=== PATIENT | male | born 1950 ===

== ENCOUNTER 2017-03-07 18:34 | Inpatient (IN) | payer MEDICAID ==
[~2017-03-07] VITALS: Ht 182.8 cm; Wt 71.7 kg
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
--- NOTE | ~2017-03-07 | PR ---
[place], [place] PROGRESS NOTE NAME: ABIEL CHIRINOS UNIT #: [id number] ROOM: 311 DOCTOR: Rico BURT,RENÉE BIRTHDATE: [birth year] DOS: 03/14/2017 PSYCHIATRIC PROGRESS NOTE SUBJECTIVE: The patient seen and spoke with the staff. Per staff, the patient is doing well. No visual problems or issues. Pleasantly confused and demented, easily redirectable. The patient was pleasant and cooperative. He was sitting in the day area. He reported doing well, did not express any problems or concerns. He reported good sleep and appetite. He was trying to confabulate with interview during the conversation and no other issues. MENTAL STATUS EXAMINATION: The patient was pleasant, cooperative, described his mood as "okay." Affect, mood congruent. Thought processes with confabulation. Denied auditory or visual hallucination. No delusion or paranoia. Denied suicidal ideation, intent or plan. He also denied any homicidal ideation, intent or plan. Insight and judgment impaired. ASSESSMENT: 1. Alzheimer's dementia with behavioral disturbances. 2. 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 PLAN: 1. Continue current medication and care. 2. Continue redirection. 3. Holm milieu. RENÉE BURT MD CM:TONI [id number] Rico BURT 03/14/17 1528 interface
--- NOTE | ~2017-03-07 | DS ---
[place], [place] DISCHARGE SUMMARY NAME: ABIEL CHIRINOS UNIT #: [id number] ROOM: 311 DOCTOR: Rico BURT,RENÉE BIRTHDATE: [birth year] DOS: 03/18/2017 ADDENDUM Please refer to the history of present illness, past psychiatric history, past medical history, social history, substance abuse history, admission mental status examination, admission diagnosis from the psychiatric H and P. HOSPITAL COURSE: The patient got admitted for stabilization. We started him on Depakote, which he tolerated well with significant improvement of his mood and symptoms. The treatment team felt that the patient got maximum benefit of this acute hospitalization and can be [facility] to the [facility] on [facility]18[facility]2017. MENTAL STATUS EXAM AT DISCHARGE: The patient was pleasant, cooperative. He was alert, but not oriented to date, month and year. Speech low toned. Described his mood as "okay." Affect, mood congruent. Thought processes with confabulation. He denied auditory or visual hallucination. No delusion or paranoia noted. Denied suicidal ideation, intent or plan. He also denied homicidal ideation, intent or plan. ASSESSMENT: Dementia with behavioral disturbances. PLAN: 1. Continue current medication. 2. Needs psychiatric followup appointment at the facility. RENÉE BURT MD CM:MANN [phone] Rico BURT 03/20/17 0611 interface
--- NOTE | ~2017-03-07 | PR ---
[place], [place] PROGRESS NOTE NAME: ABIEL CHIRINOS UNIT #: [id number] ROOM: 311 DOCTOR: Rico BURT,RENÉE BIRTHDATE: [birth year] DOS: 03/15/2017 SUBJECTIVE: The patient seen and spoke with the staff. Per staff, the patient is doing well. No behavioral problems or issues. He walks in the hallway every day. Easily redirectable. Slept well. Medication compliant. The patient was in the day area. He reports doing well. Denied being depressed or sad. He had difficulty finding words at times also. He was definitely confabulating, not in any acute distress. MENTAL STATUS EXAMINATION: The patient was pleasant and cooperative, described his mood as "okay." Affect, mood congruent. Denied auditory or visual hallucination. No delusion or paranoia noted. He denied any suicidal ideation, intent or plan. He also denied any homicidal ideation, intent or plan. ASSESSMENT: 1. Alzheimer dementia with behavioral disturbances. 2. 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 PLAN: 1. Continue current medication and care. 2. Continue redirection. 3. Holm milieu. RENÉE BURT MD CM:TONI 47 [phone] Rico BURT 03/15/171931 interface
--- NOTE | ~2017-03-07 | PR ---
[place], [place] PROGRESS NOTE NAME: ABIEL CHIRINOS UNIT #: [id number] ROOM: 311 DOCTOR: Rico BURT,RENÉE BIRTHDATE: [birth year] DOS: 03/17/2017 PSYCHIATRIC PROGRESS NOTE SUBJECTIVE: The patient seen and spoke with the staff. Per staff, the patient is doing well. No behavioral problems or issues. Medication compliant. He is pleasantly confused. The patient was pleasant, cooperative. He was in the day area. He said that he is doing pretty good. He did not express any problems or concern. He reports good sleep and appetite. MENTAL STATUS EXAMINATION: The patient was pleasant and cooperative, described his mood as "pretty good." Affect, mood congruent. Thought processes with confabulation. He denied auditory or visual hallucination. No delusions or paranoia noted. He denies suicidal ideation, intent or plan. He also denied homicidal ideation, intent or plan. ASSESSMENT: 1. 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 2. Alzheimer's dementia with behavioral disturbances. PLAN: 1. Continue current medication. 2. Continue redirection. 3. Holm milieu. RENÉE BURT MD CM:TONI [phone] Rico BURT 03/17/17 1029 interface
--- NOTE | ~2017-03-07 | PR ---
[place], [place] PROGRESS NOTE NAME: ABIEL CHIRINOS UNIT #: [id number] ROOM: 311 DOCTOR: LAQUITA BATES MD BIRTHDATE: [birth year] DOS: 03/09/2017 CHIEF COMPLAINT: "Morning, I don't know what I am doing here." SUMMARY OF THE VISIT: The patient was interviewed in the hallway and then later, walked into the dining area. He was very vague in his responses. He denied any issues, but could not give me much details as far as how long he has been here and why he was here. He minimized any issues and stated that he is sleeping well and eating well. MENTAL STATUS: He is alert and oriented to self only. Mood does seem to be fairly euthymic this morning, although he is very vague and his responses are short and simple at times totally inappropriate. He has a great deal of processing difficulty and short term memory is very poor. PLAN: I will try to simplify his drug regimen. I do not see necessarily depression, so I will discontinue Remeron. I will get rid of p.r.n. Haldol and Benadryl in lieu of Ativan and Geodon. I will discontinue Aricept in lieu of Exelon patch 4.6 mg a day. Given his history of mood lability, I will start Depakote 500 mg t.i.d. and monitor accordingly. We will engage in individual and fuller milieu activity with the plan to return back to [facility] or the least restrictive environment when psychiatrically stable. LAQUITA BATES MD CM:PNTRANS [id number] LAQUITA BATES MD 03/09/17 1118 interface
--- NOTE | ~2017-03-07 | PR ---
[place], [place] PROGRESS NOTE NAME: ABIEL CHIRINOS UNIT #: [id number] ROOM: 311 DOCTOR: LAQUITA BATES MD BIRTHDATE: [birth year] DOS: 03/12/2017 CHIEF COMPLAINT: "I have been here as long as I needed to be here." SUMMARY OF THE VISIT: The patient was interviewed as he sat engaging in group therapy. He did stop and engage in conversation with me. He remains pleasantly confused. His responses are very disorganized and he makes little sense and does not necessarily answer the questions asked of him. He was pleasant, however. MENTAL STATUS: He is alert and oriented to person. It is unclear if he realizes where he is at and he certainly has no orientation to time. His responses are short and simple, more often than not inappropriate to the question asked of him. He is very perplexed and bewildered. He is tolerating the current medication regimen well and I see no sedation, somnolence or other side effects. PLAN: I will check a valproic acid level in the morning to ensure that it is therapeutic, maintain Depakote 500 t.i.d., maintain Exelon patch and Namenda, engage in individual and fuller milieu activity with the plan to return to [facility] when stable. LAQUITA BATES MD CM:PNTRANS [phone] LAQUITA BATES MD 03/12/172121 interface
--- NOTE | ~2017-03-07 | PR ---
[place], [place] PROGRESS NOTE NAME: ABIEL CHIRINOS UNIT #: [id number] ROOM: 311 DOCTOR: Rico BURT,RENÉE BIRTHDATE: [birth year] DOS: 03/16/2017 SUBJECTIVE: The patient seen and spoke with the staff. Per staff, the patient is doing well. No behavioral problems or issues. Pleasantly confused, easily redirectable. The patient was pleasant, cooperative. He was watching TV. He was in the day area. He reports doing well. Denied any problems or concerns. MENTAL STATUS EXAMINATION: Pleasant, cooperative. Described her mood as "okay." Affect, mood congruent. Thought processes with confabulation. He denied auditory or visual hallucination. No delusion or paranoia noted. Denied suicidal ideation, intent or plan. He also denied homicidal ideation, intent or plan. ASSESSMENT: 1. Major depressive disorder with psychotic features. 2. Dementia with behavioral disturbances. PLAN: 1. Continue current medication and care. 2. Continue redirection. 3. Holm milieu. RENÉE BURT MD CM:TONI 56 Rico BURT 03/17/1735 interface
--- NOTE | ~2017-03-07 | DS ---
[place], [place] DISCHARGE SUMMARY NAME: ABIEL CHIRINOS UNIT #: [id number] ROOM: 311 DOCTOR: Rico BURT MAHBOOB BIRTHDATE: [birth year] DOS: 03/18/2017 ADDENDUM Please copy the history of present illness, past psychiatric history, past medical history, social history, admission mental status examination, admission diagnoses from the psychiatric admission H and P. HOSPITAL COURSE: The patient was admitted for stabilization. He was started on medication, which he tolerated well with significant improvement of his mood and symptoms. During the course of his hospitalization, the patient has never been a threat to himself or anyone else. He was pleasant, cooperative and engaging. He took his medication regularly and did not have any side effect. He was easily redirectable. The treatment team felt that the patient got maximum benefit out of the acute hospitalization and can be discharged back to the correction on 03/18/2017. MENTAL STATUS EXAMINATION: The patient was pleasant, cooperative, described his mood as "okay." Affect, mood congruent. Thought process is with confabulation. Denied auditory or visual hallucination. No delusions or paranoia noted. Denied suicidal ideation, intent or plan. He also denies homicidal ideation, intent or plan. Insight and judgment impaired. ASSESSMENT: 1. Major depressive disorder without psychotic feature. 2. Dementia with behavioral disturbances. PLAN: 1. Continue current medication. 2. The patient needs to be seen by the psychiatrist at the nursing facility. 3. If there is any crisis or concern, please call 911 or send the patient to the ER. [place], [place] DISCHARGE SUMMARY NAME: ABIEL CHIRINOS UNIT #: [id number] ROOM: 311 DOCTOR: Rico BURT MAHBOOB BIRTHDATE: [birth year] RENÉE BURT MD CM:MANN [phone] Rico BURT 03/19/17 0904 interface
--- NOTE | ~2017-03-07 | PR ---
[place], [place] PROGRESS NOTE NAME: ABIEL CHIRINOS UNIT #: [id number] ROOM: 311 DOCTOR: Rico BURT,RENÉE BIRTHDATE: [birth year] DOS: 03/13/2017 PSYCHIATRIC PROGRESS NOTE SUBJECTIVE: The patient seen and spoke with the staff. Per staff, patient is doing well. No behavioral problems or issues. Med compliant. The patient was pleasant, cooperative. He was in the day area. He is totally not aware of the day, date, month, or year. He even does not know his name. He said that he is doing well. He was not in any distress. Did not express any problems or concerns. MENTAL STATUS EXAMINATION: The patient was pleasant, cooperative. He was alert, but not oriented to day, date, month and year. Speech, normal volume and tone. Described his mood as "fine." Affect was mood congruent. Thought process with confabulation. Denied auditory or visual hallucination. No delusion or paranoia noted. Denied suicidal ideation, intent or plan. He also denied homicidal ideation, intent or plan. Insight and judgment impaired. ASSESSMENT: 1. Alzheimer dementia with behavioral disturbances. 2. Major depressive disorder, recurrent with psychotic feature. PLAN: 1. Continue current medication and care. 2. Continue redirection. 3. . RENÉE BURT MD CM:TONI 2 Rico BURT 03/14/17222 interface
--- NOTE | 2017-03-07 20:00 | NUR ---
ABIEL CHIRINOS a 66 year old M admitted via stretcher from the ADMITTING as a voluntary admission. Arrived on unit at 1999. ALLERGIES: NKA. Vital signs are: 98.2-86-16 108/81. Verbal consent received from the POA for the following forms with stated understanding: Authorization For The Release of Medical Information, Clothing List, Consent to Voluntary Admission and Hospitalization, Consent and Release Forms/Receipt of Rights, Acknowledgement of Advance Directive Information, Behavioral Health Consent Form, and Informed Consent of Medications. Admitted under the services of Dr. CARMEL M.D.,[facility]. A search was conducted and hazardous articles were removed. Client was oriented to the unit. SUSAN ZEPEDA
[2017-03-07] MEDS ORDERED: ARICEPT10 M1 PO (20:03)
[2017-03-07] MEDS ORDERED: COLACE100 MG PO (20:04)
[2017-03-07] MEDS ORDERED: KLOR-CON 1010 ME1 PO (20:05)
[2017-03-07] MEDS ORDERED: LASIX20 MG PO ×2 (20:05→20:21)
[2017-03-07] MEDS ORDERED: REMERON15 M2 PO (20:24)
[2017-03-07] MEDS ORDERED: VITAMIN D350000 UNIT PO (20:25)
[2017-03-07] MEDS ORDERED: NAMENDA10 MG PO (20:26)
[2017-03-07] MEDS ORDERED: TRAMADOL HCL50 MG PO (20:27)
[2017-03-07 20:29] VITALS: BP 108/81
--- NOTE | 2017-03-07 20:45 | NUR ---
PT CALM AND COOPERATIVE DURING THE ADMISSION ASSESSMENT. ANSWERED SOME QUESTIONS APPROPRIATELY WITH YES OR NO ANSWERS HOWEVER UNABLE TO STATE NAME, WHERE HE WAS AT, OR THE YEAR. WHEN PT WAS ASKED TO SIGN HIS NAME TO THE CRISIS PREVENTION PLAN PT WAS UNABLE TO REMEMBER HIS NAME. WHEN PT WAS SHOWED HIS HOSPITAL ID [facility] HE WAS STILL UNABLE TO INITIAL HIS NAME. NO ADVERSE MOODS OR BEHAVIORS NOTED FROM PT. PT INTRODUCED TO UNIT AND MADE AWARE OF WHERE HIS ROOM IS. PT PROVIDED SNACK THIS PM.
[2017-03-07 21:45] VITALS: BP 108/81
--- NOTE | 2017-03-07 21:45 | NUR ---
CALL OUT TO FACILITY TO SEE IF PT RECEIVED HIS FLU VACCINATION. FACILITY STTED THEY HAVENT GIVEN ANY OUT YET, CALL TO POA TO SEE IF POA WANTS PT TO GET FLU VACCINATION HERE OR AT THE FACILITY. POA STATED TO GIVE THE PT HIS FLU VACCINATION WHILEHE IS HERE.
--- NOTE | 2017-03-07 22:09 | NUR ---
CALL PLACED TO REGARDING NEW ADMISSION MEDICAL MANAGEMENT CONSULT. VERBAL ORDERS RECEIVED TO CONTINUE MEDICAL HOME MEDICATIONS. CONSULT IS PLACED UNDER .
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
--- NOTE | 2017-03-08 04:44 | NUR ---
24 HR chart check completed.
--- NOTE | 2017-03-08 06:12 | NUR ---
PT SLEPT GREATER THAN 6 HOURS THIS SHIFT. NO S/S OF DISTRESS NOTED. NO C/O PAIN.
[2017-03-08 07:10] LABS: BASO # 0.1 10*3/uL (0.0-0.1); BASO % 1.1 % (0.0-1.0); EOS # 0.2 10*3/uL (0.0-0.4); HEMATOCRIT 43.5 % (42.0-52.0); HEMOGLOBIN 14.4 g/dl (14.0-18.0); LYMPH # 2.1 10*3/uL (1.3-4.4); LYMPH % 32.3 % (27.0-41.0); MEAN CELL VOLUME 95.4 fl (80.0-94.0); MEAN CORPUSCULAR HGB 31.6 pg (27.0-31.0); MEAN CORPUSCULAR HGB CONC 33.1 g/dl (33.0-37.0); MEAN PLATELET VOLUME 11.2 fl (9.6-12.3); MONO # 0.6 10*3/uL (0.1-1.0); MONO % 8.7 % (3.0-9.0); NEUT # 3.5 10*3/uL (2.3-7.9); NEUT % 54.6 % (47.0-73.0); PLATELET COUNT AUTOMATED 153 10*3/uL (130-400); RED BLOOD COUNT 4.56 10*6/uL (4.50-5.90); WHITE BLOOD COUNT 6.4 10*3/uL (4.8-10.8)
[2017-03-08 07:40] LABS: ALBUMIN 3.4 gm/dl (3.1-4.5); ALKALINE PHOSPHATASE 94 U/L (45-117); BUN 13 mg/dl (7-24); CHLORIDE 107 mmol/L (98-107); CHOLESTEROL 163 mg/dL (<200); CREATININE 1.15 mg/dL (0.70-1.30); HDL CHOLESTEROL 52 mg/dl (40-60); LDL CHOLESTEROL 74 mg/dL (9-159); POTASSIUM 3.6 mmol/L (3.5-5.1); SGOT/AST 22 IU/L (3-35); SGPT/ALT 15 U/L (12-78); SODIUM 144 mmol/L (136-145); TOTAL PROTEIN 6.4 gm/dL (6.4-8.2); TRIGLYCERIDES 186 mg/dl (<150); VLDL CHOLESTEROL 37 mg/dL (6-40)
[2017-03-08 07:53] VITALS: BP 143/78
[2017-03-08 09:01] LABS: VITAMIN D, 25-HYDROXY 49.8 ng/mL (30-100)
--- NOTE | 2017-03-08 09:07 | NUR ---
DR. BURT HERE TO SEE PT AT THIS TIME.
--- NOTE | 2017-03-08 09:21 | NUR ---
RECIEVED CALL FROM PT'S SENIA MAYER, UPDATE GIVEN. DORI PROVIDED HER CELL PHONE NUMBER, , CELL PHONE NUMBER ADDED TO CHART.
--- NOTE | 2017-03-08 10:53 | NUR ---
DR. CHILDS ON UNIT TO SEE PT AT THIS TIME.
--- NOTE | 2017-03-08 11:20 | NUR ---
FLU VACCINE GIVEN THIS DATE TO PT'S RIGHT DELTOID, AFEBRILE, PT TOLERATED WELL. SEE EMAR FOR FURTHER DOCUMENTATION.
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
--- NOTE | 2017-03-08 14:35 | NUR ---
RECIEVED CALL FROM DR. BENSON REQUESTING MORE INFORMATION ON PT'S PAST MEDICAL HISTORY, CALL PLACED TO [facility], REQUESTED HISTORY AND PHYSICAL, NURSE CARLOS STATES SHE WILL FAX IT OVER. FAX NUMBER PROVIDED.
--- NOTE | 2017-03-08 15:03 | NUR ---
H&P RECIEVED FROM [facility], NO NEW INFORMATION DISCOVERED FROM WHAT WAS IN THE CHART, CALL PLACED TO SENIA TO INQUIRE ABOUT SURGICAL AND FAMILY HISTORY, NO ANSWER, MESSAGE LEFT. CALL PLACED TO DR. BENSON TO MAKE AWARE.
--- NOTE | 2017-03-08 17:20 | NUR ---
SHIFT CHART CHECK COMPLETED.
[2017-03-08 20:11] VITALS: BP 110/74
--- NOTE | 2017-03-08 22:06 | NUR ---
PATIENT AMBULATING IN HALLWAY. ABLE TO REDIRECT PATIENT OUT OF OTHER PATIENT'S ROOM. MEDICATION COMPLAINT. VOICES NO COMPLAINTS OF PAIN OR DISCOMFORT AT THIS TIME
--- NOTE | 2017-03-08 22:15 | NUR ---
PATIENT WITH NO AGGRESSIVE BEHAVIORS THOUGHOUT SHIFT. PATIENT AMBULATING ON UNIT AND ABLE TO EASILY REDIRECT
--- NOTE | 2017-03-09 06:45 | NUR ---
Q 15 MINUTE SAFETY CHECKS MAINTAINED. SLEPT > 7 HOURS THROUGHOUT SHIFT
--- NOTE | 2017-03-09 06:54 | NUR ---
24 HR chart check completed.
[2017-03-09 08:10] VITALS: BP 116/64
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
--- NOTE | 2017-03-09 11:04 | NUR ---
DR. CHILDS ON UNIT TO SEE PATIENT.
--- NOTE | 2017-03-09 11:24 | NUR ---
Music Therapy/Reminisce/Trivia Patient did not attend group. Patient became agitated when approched to join group. AC will attempt to encourage patient to join afternoon group
--- NOTE | 2017-03-09 14:56 | NUR ---
NITA sent updated information to at [facility]) so the "change in condition" form for the pasrr can be updated by the facility.
--- NOTE | 2017-03-09 15:16 | NUR ---
PATIENT IS ALERT AND ORIENT TO SELF AND HANDS ON CARE. RESPIRATIONS ARE EASY, NON-LABORED ON ROOM AIR. LONG/SHORT TERM MEMORY DIFICITS NOTED. NO HALLUCINATIONS, DELUSIONS, HI/SI OR PAIN NOTED. PATIENT AMBULATES INDEPENDENTLY WITH STEADY GAIT. PACING IN THE HALLWAY. REFUSED MORNING MEDICATIONS. TOOK AFTERNOON MEDICATION WITH EDUCATION. PATIENT ENCOURAGED TO PARTICIPATE IN GROUP SESSIONS WITHOUT SUCCESS. MEAL INTAKES VARY WITH ADEQUATE FLUIDS. INDEPENDENT WITH ACTIVITIES OF DAILY LIVING. CONTINENT OF BOWEL AND BLADDER. Q 15 MINUTE SAFETY CHECKS MAINTAINED. NO AGGRESSION NOTED DURING THIS SHIFT. CONTINUE TO MONITOR FOR AGGRESSIVE BEHAVIORS AND REDIRECT NEEDED.
--- NOTE | 2017-03-09 15:28 | NUR ---
Craft and self esteem group Patient attended the start of group after encouragement to attend. Patient however got up and exited room a few minutes after group started. Patient paced up and down the hallway while group was in session and declinde to enter into the room.
--- NOTE | 2017-03-09 16:19 | NUR ---
24 HR chart check completed.
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
[2017-03-09 20:00] VITALS: BP 106/79
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
--- NOTE | 2017-03-09 22:48 | NUR ---
24 HR chart check completed.
--- NOTE | 2017-03-10 05:49 | NUR ---
PT HAS BEEN OBSERVED ON Q 15 MIN CHECKS & HAS SLEPT QUIETLY THROUGHOUT THE SHIFT PAST 2330 UNTIL 0500. PT HAS BEEN UP & AMBULATING IN THE SALINAS WAY & HAS AGAIN REQUIRED REDIRCTION.
[2017-03-10 08:17] VITALS: BP 115/74
--- NOTE | 2017-03-10 10:50 | NUR ---
DR. CHILDS ON UNIT TO SEE PATIENT.
--- NOTE | 2017-03-10 11:51 | NUR ---
PATIENT IS ALERT TO PERSON ONLY WITH CONFUSION. LONG/SHORT TERM MEMORY DEIFICITS NOTED. RESPIRATIONS ARE EASY, NON-LABORED ON ROOM AIR. THOUGHT PROCESS IS CONFUSED. NO HALLUCINATIONS, DELUSIONS, HI/SI OR PAIN NOTED. PATIENT PACES THE HALLWAY, WONDERS INTO ROOMS, INTRUSIVE AND CAN BE AGITATED WITH REDIRECTION. PATIENT IS INDEPENDENT WITH ACTIVITIES OF DAILY LIVING, REQUIRES VERBAL CUEING TO ATTEND GROUPS AND FOR MEALS. PATIENT PARTICIPATED IN GROUP SESSIONS TODAY. APPETITE IS POOR WITH MUCH ENCOURAGEMENT. CONTINENT OF BOWEL AND BLADDER WITH CUEING WHERE THE BATHROOM IS. MEDICAITON COMPLIANT WITH EDUCATION. 1Q 15 MINUTE SAFETY CHECKS MAINTIANED. CONTINUE TO MONITOR BEHAVIORS AND REDIRECT NEEDED.
--- NOTE | 2017-03-10 13:12 | NUR ---
langtaojin Game Patient was in attendence for group as well as participated. Patient was appropriate throughout group and showed no signs of aggressive behavior or anger.
--- NOTE | 2017-03-10 15:28 | NUR ---
JUNIOR Patient did attend group this afternoon as well as partipated. Patient did need 1:1 but showed no aggresive behaviors throughout group. Patient joked and "chuckled' with AC during group.
--- NOTE | 2017-03-10 16:17 | NUR ---
Shift chart check completed.
[2017-03-10 20:09] VITALS: BP 117/78
--- NOTE | 2017-03-10 21:27 | NUR ---
24 HR chart check completed.
--- NOTE | 2017-03-11 06:09 | NUR ---
PT HAS BEEN OBSERVED ON Q 15 MIN CHECKS & HAS SLEPT QUIETLY THROUGHOUT THE SHIFT PAST 2200 WITH 2 BRIEF AWAKENINGS. CAME INTO THE [facility] BRIEFLY & WAS EASILY REDIRECTED BACK TO HIS ROOM.
[2017-03-11 08:00] VITALS: BP 110/78
--- NOTE | 2017-03-11 08:30 | NUR ---
TREATMENT TEAM WAS BLAIRE WITH THE FOLLOWINF : DR. BATES, RESIDENT, OPTICAL ADVISOR, RN, SW. PEDING DISCHARGE NEXT WEEK.
--- NOTE | 2017-03-11 11:37 | NUR ---
Jose J:Shelby Millerecdeb/Reminiscing Patient was in attendence for group as well as participated. Patient needed 1:1 and was joking and "chuckling" with staff. Patient showed no aggressive behaviors throughout group as well as no anger issues
--- NOTE | 2017-03-11 12:57 | NUR ---
24 HR chart check completed.
--- NOTE | 2017-03-11 14:48 | NUR ---
CONFUSED, DISORIENTED, ALERT TO SELF AT TIMES, NEEDE 1 STEP DIRECTIONS, TOOK MEDS WHOLE, PACES UP AND DOWN THE HALLS, IS REDIRECTABLE, NOT COMBATIVE, WILL CONTINE TO MONITOR AND FOLLOW TREATMENT PLAN
[2017-03-11 19:24] VITALS: BP 105/85
--- NOTE | 2017-03-11 19:50 | NUR ---
CONTINUES TO WANDER IN HALLWAY TRYING TO GO INTO PEERS ROOM. REDIRECTED WITH DIFFICULTY. CURRENTLY STANDING IN [facility] OUTSIDE HIS ROOM. MINIMAL TO NO EYE CONTACT. NON VERBAL WHEN TRYING TO DISCUSS BOUNDRIES. WILL MONITOR
--- NOTE | 2017-03-11 20:47 | NUR ---
ATTEMPTED TO HOLD A CONVERSATION WITH ME CONCERNING PEOPLE BEING HERE THEN THEY ARE THERE AND HITTING IS BAD. TANGENTIAL CONVERSATION BOUNCING NOEL GETTING PAPERS OUT OF THE MACHINE TO HE JUST WENT FROM HERE TO THERE AND YOU KNOW SOME JUST DON'T CARE. INTERMITTENT EYE CONTACT WITH FLAT TONE. SITTING IN DININGROOM AT THIS TIME
--- NOTE | 2017-03-12 05:20 | NUR ---
24 HR chart check completed.
--- NOTE | 2017-03-12 05:20 | NUR ---
has slept well past 2130pm. no wander halls tonight
[2017-03-12 07:56] VITALS: BP 123/62
--- NOTE | 2017-03-12 11:17 | NUR ---
Exercises and remenissing group Patient attended group with peers and displayed appropriate behavior. Patient completed exercises and engaged in discussion of holidays. Patient unable to identify triggers for agression or ways to cope with anger.
--- NOTE | 2017-03-12 15:08 | NUR ---
PT NOTED TO BE PLEASANTLY CONFUSED IN ALL AREAS, ANSWERS TO THE NAME 'SRI'. UNABLE TO ASSESS MEMORY D/T PT'S LEVEL OF CONFUSION. RESPIRATIONS EASY ON ROOM AIR. MOOD IS STABLE, AFFECT IS FLAT. SPEECH IS SOFT AND SLOW, PT UNABLE TO VERBALIZE A COHERENT THOUGHT. PT IS AMBULATORY WITH STEADY GAIT, REQUIRES PROMPTING FOR ADLS, FEEDS SELF WITH PROMPTING FROM STAFF, GOOD APPETITE WITH ADEQUATE FLUID INTAKE, CONTINENT OF BOWEL AND BLADDER. MEDICATION COMPLIANT WITHOUT DIFFICULTY. REQUIRES SIMPLE 1 STEP INSTRUCTIONS FROM STAFF TO COMPLETE ANY TASK. PT WANDERS UP AND DOWN HALLWAYS THROUGH OUT THE DAY, REQUIRES FREQUENT REDIRECTION OUT OF OTHER PT'S ROOMS, PT ATTEMPTS TO OPEN ALL LOCKED DOORS, HIGH ELOPEMENT RISK PRECAUTIONS MAINTAINED. PT ALSO NOTED TO BE URINATING IN VARIOUS PLACES ON THE UNIT, PT DIRECTED TO TOLIET IN ROOM BUT FORGETS THIS INFORMATION QUICKLY. PT PLACED ON Q2H TOLEITING SCHEDULE IN ATTEMPT TO DECREASE THIS BEHAVIOR. PT'S TREATMENT PLAN TARGETS AGGRESSIVE BEHAVIORS R/T INCREASED CONFUSION EVIDENCED BY PT PUNCHING AND PUSHING ANOTHER RESIDENT DOWN AT THE [facility] PRIOR TO ADMISSION. PT HAS DISPLAYED NO AGGRESSIVE BEHAVIORS THIS SHIFT, PT HAS BEEN EASILY REDIRECTED. PT IS CALM AND COOPERATIVE. STAFF WILL ATTEMPT TO ASSIST PT IN IDENTIFYING TRIGGERS TO AGGRESSIVE BEHAVIORS, ATTEMPT TO ASSIST PT IN LEARNING 3 NEW COPING SKILLS AND PRACTICE, AND ENCOURAGE MEDICATION COMPLIANCE. PLAN TO CONTINUE CURRENT TX PLAN. NO DISTRESS NOTED. Q15 MIN SAFETY CHECKS MAINTAINED, REFER TO [facility] FLOWSHEET FOR SPECIFIC MONITORING.
--- NOTE | 2017-03-12 18:16 | NUR ---
SHIFT CHART CHECK COMPLETED.
[2017-03-12 20:00] VITALS: BP 118/74
--- NOTE | 2017-03-13 04:00 | NUR ---
24 HR chart check completed.
--- NOTE | 2017-03-13 04:10 | NUR ---
PT PLEASANTLY CONFUSED AND ANSWERS TO THE NAME "SRI". UNABLE TO ASSESSMEMORY AND ORIENTATION DUE TO CONFUSION. RESPIRATIONS EASY AND NON LABORED ON ROOM AIR. MOOD IS STABLE AND AFFECT IS FLAT. SPEECH IS SLOW AND SOFT. PT UNABLE TO VERBALIZE A COHERENT THOUGHT. UNABLE TO VERBALIZE WANTS AND NEEDS TO STAFF. FEEDS SELF WITH PROMPTING. MEDICATION COMPLIANT WITH MANY VERBAL PROMPTS AND SIMPLE STEP BY STEP DIRECTIONS ON HOW TO TAKE HIS MEDICATIONS. PT WANDERS UP AND DOWN THE HALLWAY AND ATTEMPTS TO OPEN ALL DOORS. ELOPMENT RISK PRECAUTIONS IN PLACE. PT TREATMENT PLAN TARGETS AGGRESSIVE BEHAVIORS R/T INCREASED CONFUSION AEB PUNCHING AND PUSHING OTHER RESIDENT AT [facility] PRIOR TO ADMISSION. NO PHYSICAL OR VERBAL AGGRESSION NOTED THIS SHIFT. PT IS CALM AND COOPERATIVE. STAFF WILL ATTEMPT TO ASSIST PT IN IDENTIFYING TRIGGERS FOR AGGRESSION AND LEARNING 3 NEW COPING SKILLS FOR AGGRESSION. Q 15 MINUTE CHECKS MAINTAINED. REFER TO [facility] FLOWSHEET FOR SPECIFIC MONITORING. NO DISTRESS NOTED AT THIS TIME.
--- NOTE | 2017-03-13 06:50 | NUR ---
PT SLEPT GREATER THAN 8 HOURS THIS SHIFT. NO S/S OF DISTRESS NOTED. NO C/O PAIN.
[2017-03-13 07:34] LABS: BASO # 0.1 10*3/uL (0.0-0.1); BASO % 1.1 % (0.0-1.0); EOS # 0.3 10*3/uL (0.0-0.4); EOS % 5.3 % (1.0-4.0); HEMATOCRIT 42.5 % (42.0-52.0); HEMOGLOBIN 14.2 g/dl (14.0-18.0); LYMPH # 2.4 10*3/uL (1.3-4.4); LYMPH % 41.8 % (27.0-41.0); MEAN CELL VOLUME 93.6 fl (80.0-94.0); MEAN CORPUSCULAR HGB 31.3 pg (27.0-31.0); MEAN CORPUSCULAR HGB CONC 33.4 g/dl (33.0-37.0); MEAN PLATELET VOLUME 11.1 fl (9.6-12.3); MONO # 0.4 10*3/uL (0.1-1.0); MONO % 7.7 % (3.0-9.0); NEUT # 2.5 10*3/uL (2.3-7.9); NEUT % 43.7 % (47.0-73.0); PLATELET COUNT AUTOMATED 138 10*3/uL (130-400); RED BLOOD COUNT 4.54 10*6/uL (4.50-5.90); RED CELL DISTRI WIDTH 12.8 % (0-14.5); WHITE BLOOD COUNT 5.6 10*3/uL (4.8-10.8)
--- NOTE | 2017-03-13 07:40 | NUR ---
03/12/17/ Afternoon Craft: Dealing with stress Patient was in attendence as well as participated. Patient stayed on task,showing no signs of aggression or anger issues throughout group
[2017-03-13 07:48] VITALS: BP 121/74
[2017-03-13 08:05] LABS: ALBUMIN 3.1 gm/dl (3.1-4.5); ALKALINE PHOSPHATASE 91 U/L (45-117); BUN 17 mg/dl (7-24); CHLORIDE 104 mmol/L (98-107); SGOT/AST 14 IU/L (3-35); SGPT/ALT 15 U/L (12-78); SODIUM 141 mmol/L (136-145); TOTAL PROTEIN 6.1 gm/dL (6.4-8.2)
--- NOTE | 2017-03-13 10:45 | NUR ---
Positive Traits Patient did come to group but soon got up to leave. Patient was encouraged to stay how ever just got up and left the room
--- NOTE | 2017-03-13 11:04 | NUR ---
PT NOTED TO BE PLEASANTLY CONFUSED IN ALL AREAS, ANSWERS TO THE NAME 'SRI'. UNABLE TO ASSESS MEMORY D/T PT'S LEVEL OF CONFUSION. RESPIRATIONS EASY ON ROOM AIR. MOOD IS STABLE, AFFECT IS FLAT. SPEECH IS SOFT AND SLOW, PT STATES TO THIS NURSE THIS AM "GOOD MORNING! HOW ARE YOU?" PT IS AMBULATORY WITH STEADY GAIT, REQUIRES PROMPTING FOR ADLS, FEEDS SELF WITH PROMPTING FROM STAFF, GOOD APPETITE WITH ADEQUATE FLUID INTAKE, CONTINENT OF BOWEL AND BLADDER. MEDICATION COMPLIANT WITHOUT DIFFICULTY, VPA LEVEL THIS AM OF 105.3 - DR. BURT MADE AWARE, NNO RECIEVED AT THIS TIME. PT REQUIRES SIMPLE 1 STEP INSTRUCTIONS TO COMPLETE ANY TASK. PT WALKS UP AND DOWN HALLWAYS THOUGH OUT THE DAY, CONTINUES TO ATTEMPT TO OPEN CLOSED DOORS, HIGH ELOPEMENT PRECAUTIONS MAINTAINED. PT IS EASILY REDIRECTED AWAY FROM DOORS WITH VERBAL CUEING. PT HAS BEEN USING TOLIET APPROPRIATELY SO FAR THIS SHIFT. WILL CONT TO MONITOR AND ENCOURAGE PT TO USE RESTROOM. PT'S TREATMENT PLAN TARGETS AGGRESSIVE BEHAVIORS R/T INCREASED CONFUSION EVIDENCED BY PT PUNCHING AND PUSHING ANOTHER RESIDENT DOWN AT THE NURSING FACILITY PRIOR TO ADMISSION. PT HAS DISPLAYED NO AGGRESSIVE BEHAVIORS SO FAR THIS SHIFT. PT IS CALM AND COOPERATIVE, PLEASANT AND POLITE WITH STAFF AND PEERS. STAFF WILL ATTEMPT TO ASSIST PT IN IDENTIFYING TRIGGERS TO AGGRESSIVE BEHAVIORS, ATTEMPT TO ASSIST PT IN LEARNING 3 NEW COPING SKILLS AND PRACTICE, AND ENCOURAGE MEDICATION COMPLIANCE. PLAN TO CONTINUE CURRENT TX PLAN. NO DISTRESS NOTED. Q15 MIN SAFETY CHECKS MAINTAINED, REFER TO [facility] FLOWSHEET FOR SPECIFIC MONITORING.
--- NOTE | 2017-03-13 14:14 | NUR ---
CHRISTIAN MCADAMS GROUNDMAN ON UNIT TO SEE PT AT THIS TIME.
--- NOTE | 2017-03-13 15:17 | NUR ---
Reminiscing Patient did not attend group this afternoon,patient was taking a nap
--- NOTE | 2017-03-13 18:49 | NUR ---
SHIFT CHART CHECK COMPLETED.
[2017-03-13 20:00] VITALS: BP 117/80
--- NOTE | 2017-03-14 04:25 | NUR ---
24 HOUR CHART CHECK COMPLETED.
--- NOTE | 2017-03-14 06:07 | NUR ---
PATIENT OBSERVED ON Q 15 MIN SAFETY CHECKS TO HAVE SLEPT >7 HOURS UNINTERRUPTED. PATIENT REMAINS PLEASANTLY CONFUSED THIS SHIFT. EASILY REDIRECTED BY STAFF AT THE BEGINING OF SHIFT WHEN PATIENT ATTEMPTED TO ENTER PATIENTS ROOMS X3. ELOPEMENT PRECAUTIONS MAINTAINED. MEDICATION COMPLIANT AFTER REVIEW. NO INCIDENCE OF URINATING IN HALLWAYS NOTED THIS SHIFT. WILL CONTINUE TO MONITOR AND ENCOURAGE PATIENT TO USE RESTROOM. NO PHYSICAL COMPLAINTS VOICED. TREATMENT PLAN CONTINUED IN REGARDS OF AGGRESSION. PATIENT HAS DISPLAYED NO AGGRESSIVE BEHAVIORS THROUGHOUT SHIFT. STAFF WILL CONTINUE TO ASSIST PATIENT IN IDENTIFYING TRIGGERS TO AGGRESSIVE BEHAVIORS AND PROVIDING EDUCATION ON 3 NEW COPING SKILLS WITH PRACTICE. NO SIGNS OR SYMPTOMS OF NOTED. REFER TO [facility] FLOWSHEET FOR SPECIFIC MONITORING.
[2017-03-14 07:57] VITALS: BP 111/66
--- NOTE | 2017-03-14 11:49 | NUR ---
Timoteo is noted to exhibit marked confusion with some hesitancy in responses to questions asked by staff. Responses to staff are irrelevant in content. He is unable to state his name, place or date when questioned. No overt s/s of sensory disturbances are noted. He is observed wandering about the unit and offers no interacting with others. Requires constant redirection to the location of his room and bathroom. 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 About midmorning Timoteo was directed to the group room and provided with a bowl of cereal. He was noted to eat with a good appetite @ that time. Requires much encouragement to take his prescribed medications and was noted to spit out his depakote and vitamin d after placing it in his mouth. Stated, "Why don't you take it?" Not receptive to orientation or reality presentation @ that time. Dr. Timmons in to see him. Refer to [facility] flowsheet for specific information.
[2017-03-14 20:10] VITALS: BP 107/74
--- NOTE | 2017-03-15 04:25 | NUR ---
24 HOUR CHART CHECK COMPLETED.
--- NOTE | 2017-03-15 06:17 | NUR ---
PATIENT OBSERVED ON Q 15 MIN SAFETY CHECKS TO HAVE SLEPT >7 HOURS UNINTERRUPTED. PATIENT REMAINS PLEASANTLY CONFUSED THIS SHIFT, WANDERED UP AND DOWN HALLWAY DURING BEGINING OF SHIFT.GAIT STEADY. ELOPEMENT PRECAUTIONS TO BE MAINTAINED. MEDICATION COMPLIANT WITHOUT DIFFICULTY AFTER REVIEW. 1X INCIDENT OF PATIENT URINATING ON SELF WHILE STANDING IN HIS ROOM. CARE AND ASSISTANCE PROVIDED BY STAFF. WILL CONTINUE TO MONITOR AND ENCOURAGE PATIENT TO USE RESTROOM. NO PHYSICAL COMPLAINTS VOICED. TREATMENT PLAN CONTINUED IN REGARDS OF AGGRESSION. PATIENT HAS DISPLAYED NO AGGRESSIVE BEHAVIORS THROUGHOUT SHIFT. STAFF WILL CONTINUE TO ASSIST PATIENT IN IDENTIFYING TRIGGERS TO AGGRESSIVE BEHAVIORS AND PROVIDING EDUCATION ON 3 NEW COPING SKILLS WITH PRACTICE. NO SIGNS OR SYMPTOMS OF DISTRESS NOTED. REFER TO [facility] FLOWSHEET FOR SPECIFIC MONITORING.
[2017-03-15 08:01] VITALS: BP 124/76
--- NOTE | 2017-03-15 09:13 | NUR ---
DR. BRUT ON UNIT TO SEE PT AT THIS TIME, UPDATE GIVEN.
--- NOTE | 2017-03-15 12:33 | NUR ---
PT IS ALERT AND ORIENTED TO SELF ONLY, ANSWERS THE NAME "SRI". ST/LT MEMORY DEFICITS NOTED. RESPIRATIONS EASY ON ROOM AIR. MOOD IS STABLE, AFFECT IS FLAT. SPEECH IS SOFT, SLOW. CAN ANSWER VERY SIMPLE QUESTIONS WITH 1 WORD ANSWERS. REQUIRES SIMPLE INSTRUCTIONS FOR ANY TASK. NO VOICED SI/HI. PT DENIES HALLUCINATIONS, NO RESPONSE TO INTERNAL STIMULI NOTED. NO PARANOIA/DELUSIONS NOTED. PT IS AMBULATORY WITH STEADY GAIT, REQUIRES PROMPTING FOR ADLS, CONTINENT OF BOWEL AND BLADDER, USED TOLIET INDEPENDENTLY THIS DATE FOR A LRG FORMED BM. MED COMPLIANT THIS SHIFT WITHOUT DIFFICULTY. PT'S TREATMENT PLAN TARGETS AGGRESSIVE BEHAVIORS R/T INCREASED CONFUSION EVIDENCED BY PT PUNCHING AND PUSHING ANOTHER RESIDENT DOWN AT THE NURSING FACILITY PRIOR TO ADMISSION. PT IS CALM AND COOPERATIVE, PLEASANT AND POLITE WITH STAFF AND PEERS, HAS DISPLAYED NO AGGRESSIVE BEHAVIORS. STAFF WILL ATTEMPT TO ASSIST PT IN IDENTIFYING TRIGGERS TO AGGRESSIVE BEHAVIORS, ATTEMPT TO ASSIST PT IN LEARNING 3 NEW COPING SKILLS AND PRACTICE AND ENCOURAGE MEDICATION COMPLIANCE. PLAN TO CONTINUE CURRENT TX PLAN. NO DISTRESS NOTED. Q15 MIN SAFETY CHECKS MAINTAINED, REFER TO [facility] FLOWSHEET FOR SPECIFIC MONITORING.
--- NOTE | 2017-03-15 18:13 | NUR ---
SHIFT CHART CHECK COMPLETED.
[2017-03-15 19:45] VITALS: BP 112/78; BP 138/70
--- NOTE | 2017-03-15 22:57 | NUR ---
PT PLEASANTLY CONFUSED AND ANSWERS TO NAME "SRI'. REPIRATIONS EASY AND NON LABORED. MOOD IS STABLE AND AFFECT FLAT. PT UNABLE TO VERBALIZE WANTS AND NEEDS TO STAFF. FEEDS SELF WITH PROMPTING. MEDICATION COMPLIANT WITH ALL MEDICATIONS EXCEPT DEPAKOTE. PT WAS SUCKING ON THE MEDICATION LIKE CANDY AND WAS UNABLE TO SWALLOW IT WITH WATER OR FOOD. WILL PASS ON TO DAYLIGHT TO ASK DR FOR DEPAKOTE SPRINKLES. SIMPLE STEP BY STEP INSTRUCTIONS NEEDED TO TAKE MEDICATIONS AND TO COMPLETE OTHER ADLS. PT WANDERS UP AND DOWN HALLS AND TRIES TO ENTER OTHER PT ROOMS AND ATTEMPTS TO OPEN ALL OTHER DOORS. ELOPEMENT RISK PRECAUTIONS IN PLACE. PT TREATMENT PLAN TARGETS AGGRESSIVE BEHAVIORS R/T INCREASED CONFUSION AEB PT PUSHING AND PUNCHING OTHER RESIDENT AT [facility]URSING FACILITYPRIOR TO ADMISSION. NO PHYSICAL OR VERBAL AGRESSION NOTED THIS SHIFT. PT IS CALM AND COOPERATIVE. STAFF WILL ATTEMPT TO ASSIST PT IN IDENTIFYING TRIGGERS FOR AGGRESSION AND L;EARNING 3 NEW COPING SKILLS FOR AGGRESSION. ENCOURAGE PT TO ATTEND AND PARTICIPATE IN GROUP AND ACTIVITIES. WILL ENCOURAGE MEDICATION COMPLIANCE AND EDUCATE PT ON NEW MEDICATIONS. Q15 MINUTE SAFETY CHECKS MAINTAINED. SEE [facility] FLOWSHEET FOR SPECIFIC MONITORING.
--- NOTE | 2017-03-15 23:13 | NUR ---
24 HR chart check completed.
--- NOTE | 2017-03-16 06:08 | NUR ---
PT SLEPT GREATER THAN 8 HOURS THIS SHIFT. NO S/S OF DISTRESS. NO C/O PAIN.
[2017-03-16 08:42] VITALS: BP 130/86
[2017-03-16 08:51] VITALS: BP 130/86
--- NOTE | 2017-03-16 10:13 | NUR ---
Treatment Team was held with the following: Dr. Timmons (phone), RNs, At, SWs. Pt to return to [facility].
--- NOTE | 2017-03-16 11:32 | NUR ---
Exercise/Reminiscing/Positive Traits Patient did not attend group this morning. Patient was asleep and could not be woke up
--- NOTE | 2017-03-16 16:33 | NUR ---
Timoteo exhibits marked confusion and has required frequent direction by staff throughout the day. Wanders about the unit and requires assistance as to the location of his room. Paces intermittently. Responses during interaction with staff are hesitant and slowed. Disoriented to all spheres and responds hesitantly when addressed by name. Irrelevant in comments to questions asked. Was noted @ one point to remove his brief in hallway and required intervention by staff. No s/s of hallucinatory activity. Exhibits an unawareness of his surroundings. Appetite is poor. He is unable to complete simple tasks even with direction @ times. Refer to [facility] flowsheet for specific monitoring. No aggressive behavior exhibited thus far.
[2017-03-16 19:59] VITALS: BP 114/74
--- NOTE | 2017-03-16 23:00 | NUR ---
PATIENT TREATMENT PLAN TARGETS AGGRESSION RELATED TO INCREASED CONFUSION. PATIENT CONTINUES WITH CONFUSION WITH NO AGGRESSIVE BEHAVIORS. PATIENT WITH NO STRIKING OUT OR PUSHING OTHER PATIENTS OR NURSING STAFF. PATIENT AMBULATING IN UNIT WITH STEADY GAIT. PATIENT EASILY REDIRECTED OUT OF OTHER PATIENT ROOMS. PATIENT WITH CONFUSION AND WITH ONE EPISODE OF URINATING IN HALLWAY X 1. MEDICATION COMPLIANT AND TOOK ALL MEDICATIONS WITHOUT DIFFICULTY.
--- NOTE | 2017-03-17 04:28 | NUR ---
24 HR chart check completed.
--- NOTE | 2017-03-17 06:49 | NUR ---
Q 15 MINUTE SAFETY CHECKS MAINTAINED. SLEPT GREATER THAN 8 HOURS THROUGHOUT SHIFT. VOICES NO COMPLAINTS OF PAIN OR DISCOMFORT
[2017-03-17 08:09] VITALS: BP 143/68
--- NOTE | 2017-03-17 10:14 | NUR ---
RUTHANN NOTIFIED [facility] THAT DR. CEDENO PT IS READY FOR DISCHARGE 03/18/17. UP DATED INFORMATION FAXED TO FACILITY.
--- NOTE | 2017-03-17 10:15 | NUR ---
PATIENT IS ALERT TO HANDS ON CARE ONLY WITH CONFUSION, RESPIRATIONS ARE EASY, NON-LABORED ON ROOM AIR. NO HALLUCINATIONS, DELUSION OBSERVED. DENIES ANY HI/SI OR PAIN. MEMORY DEFICITS NOTED. MOOD IS HOPELESS/HELPLESS. INTERACTIVE WITH STAFF AND PARTICIPATES IN ACTIVITY GROUP. NO AGGRESSION OR WANDERING NOTED TO FAR THIS SHIFT. MEDICATION COMPLIANT WITH EDUCATION PROVIDED. Q 15 MINUTE SAFETY CHECKS MAINTAINED. CONTINUE TO MONITOR FOR AGGRESSION AND WANDERING AND REDIRECT NEEDED.
--- NOTE | 2017-03-17 11:11 | NUR ---
Social Bingo Patient attended group with limited participation. Patient sat quietly at small table with other patients and would place Bingo chips randomly on board. Patient unable to identify triggers or coping skills.
--- NOTE | 2017-03-17 15:35 | NUR ---
Self Esteem Story/Coping skills Jeopardy Patient was in attendence for group but did not participated. Patient fell asleep in his chair
--- NOTE | 2017-03-17 17:50 | NUR ---
TREATMENT TEAM WAS HELD WITHTHE FOLLOWING: DR. BURT (PHONE), RNs, AT, SW. DR. BURT SAID PT CAN BE DISHARGED TO [facility] ON 03/18/17.
--- NOTE | 2017-03-17 18:00 | NUR ---
SW LEFT [facility] - PATIANNE THAT PT WAS BEING DISCHARGE BACK TO [facility].
--- NOTE | 2017-03-17 18:47 | NUR ---
RUTHANN SPOKE WITH [facility] TO ARRANGE TRANSPORTAION TO [facility]. 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
[2017-03-17 20:00] VITALS: BP 117/77
--- NOTE | 2017-03-18 04:25 | NUR ---
24 HR chart check completed.
--- NOTE | 2017-03-18 05:32 | NUR ---
PATIENT TREATMENT PLAN WITH AGGRESSION RELATED TO INCREASED CONFUSION. PATIENT WITH NO AGGRESSIVE BEHAVIORS. NO STRIKING OUT OR PUSHING. PATIENT AMBULATING ON UNIT WITH STEADY GAIT. PATIENT CONFUSED, BUT EASILY REDIRECTABLE. PATIENT REDIRECTED TO ROOM. MEDICATION COMPLIANT
--- NOTE | 2017-03-18 06:53 | NUR ---
Q 15 MINUTE SAFETY CHECKS MAINTAINED. SLEPT > 8 HOURS THIS SHIFT. VOICES NO COMPLAINTS OF PAIN OR DISCOMFORT
[2017-03-18 07:58] VITALS: BP 142/62
[2017-03-18] MEDS ORDERED: SIMVASTATIN20 MG PO (08:40)
--- NOTE | 2017-03-18 11:06 | NUR ---
Reminiscing Patient was in attendence during group but did not participate.Patient was asleep in a chair. When AT attempted to wake patient, to encourage him to participate, patient would not waken.
--- NOTE | 2017-03-18 15:33 | NUR ---
Timoteo is compliant with medications with encouragement. He continues to exhibit confusion and is noted to wander aimlessly about in hallway. Requires frequent direction from staff and is unable to follow simple tasks with prompting, Requires assistance with ADL's as he stares blankly and is unable to complete task @ hand without assistance. Per social worker school Timoteo is to be discharged today to [facility] (formerly [facility] Refer to [facility] flowsheet for specific monitoring. Timoteo did leave this facility on this date @ approximately 1:30 pm discharged. Prior to his departure a verbal report was provided to receiving facility. Dr. Timmons notified of need to complete physician section of discharge summary. Reviewed discharge medications via telephone with Dr. Timmons prior to Timoteo's discharge and informed receiving RN of these. All persona; belongings were sent with Timoteo and given to ambulance staff. Refer to disposition for specific discharge information.
== END 2017-03-18 13:21 | disposition home or self-care (01) | DRG 885 ==
LOC: 3N 18:34
PROVIDERS: Registered Nurse; ADMIT Psychiatry & Neurology Psychiatry
DX: F33.3 Major depressive disorder, recurrent, severe with psychotic symptoms (principal); F02.81 Dementia in other diseases classified elsewhere, unspecified severity, with behavioral disturbance; I50.9 Heart failure, unspecified; G30.8 Other Alzheimer's disease; E78.1 Pure hyperglyceridemia; R73.03 Prediabetes; D75.89 Other specified diseases of blood and blood-forming organs; G47.00 Insomnia, unspecified; G89.29 Other chronic pain; E55.9 Vitamin D deficiency, unspecified; Z51.5 Encounter for palliative care; Z66 Do not resuscitate; Z79.899 Other long term (current) drug therapy

== ENCOUNTER 2017-03-19 22:46 | Inpatient (IN) | payer MEDICAID ==
[~2017-03-19] VITALS: Ht 182.8 cm; Wt 71.7 kg
--- NOTE | ~2017-03-19 | PR ---
[place], [place] PROGRESS NOTE NAME: ABIEL CHIRINOS UNIT #: [id number] ROOM: 317 DOCTOR: LAQUITA BATES MD BIRTHDATE: [birth year] DOS: 03/27/2017 CHIEF COMPLAINT: The patient was nonverbal. SUMMARY OF THE VISIT: The patient was attempted to be interviewed as he rested in bed. On multiple occasions, I called his name attempting to get him to engage. Nurses report similar behavior and they attempted on multiple times to get him to converse. He did move, but did not converse. I did order a stat CBC with diff and CMP, both of which came back unremarkable. MENTAL STATUS: Limited due to his lack of cooperation and overall level of somnolence. PLAN: Given the significant somnolence. I will discontinue his Vraylar and Remeron and see if this will help him to become much more interactive. We will attempt to engage in individual and fuller milieu activity, returning to the least restrictive environment when stable. LAQUITA BATES MD CM:PNTRANS [id number] LAQUITA BATES MD 03/27/17 1014 interface
--- NOTE | ~2017-03-19 | PR ---
[place], [place] PROGRESS NOTE NAME: ABIEL CHIRINOS UNIT #: [id number] ROOM: 316 DOCTOR: LAQUITA BATES MD BIRTHDATE: [birth year] DOS: 03/23/2017 CHIEF COMPLAINT: "Morning." SUMMARY OF THE VISIT: The patient was interviewed as he reclined in a Mariana chair. He was very somnolent and it took me a while to arouse and engage him, when he did, he mouthed the words morning and then went back to sleep. Nurses report that he has been much more sedate and somewhat somnolent, almost to the point of lethargy. Report is when he did return back to the [facility] of record, he became physically combative and does seem to be responding to auditory hallucinations. MENTAL STATUS: My mental status examination is limited by his level of somnolence. PLAN: Nurses report that he is picking off the Exelon patch, so I will discontinue patch in lieu of Exelon capsules 6 mg b.i.d. Given the fact that his Depakote level is therapeutic and he was still exhibiting mood lability, I will discontinue Depakote in lieu of Vraylar 1.5 mg at bedtime. We will continue to engage in individual and fuller milieu activity with the plan then to return to the least restrictive environment when psychiatrically stable. LAQUITA BATES MD CM:PNTRANS [id number] LAQUITA BATES MD 03/23/17 1145 interface
--- NOTE | ~2017-03-19 | PR ---
[place], [place] PROGRESS NOTE NAME: ABIEL CHIRINOS UNIT #: [id number] ROOM: 316 DOCTOR: LAQUITA BATES MD BIRTHDATE: [birth year] DOS: 03/26/2017 CHIEF COMPLAINT: The patient was too somnolent and did not awake to be interviewed. SUMMARY OF THE VISIT: The patient was resting in bed. I attempted on multiple occasions to call his name and have him awake. He was soundly sleeping after receiving a p.r.n. of Ativan at approximately 2 in the morning. The patient became physically aggressive at that time, was threatening staff and was taking a very threatening stance. Staff feared for his safety and theirs. The p.r.n. was given intramuscularly with good results, unfortunately with residual somnolence this morning. 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 MENTAL STATUS: Limited due to his level of somnolence. PLAN: I will go ahead and increase the Vraylar from 3 mg at bedtime to 4.5 mg at bedtime. I will add a straight dose of Vistaril 50 mg at bedtime to see if we can head off any sundowning behavior. We will continue to monitor and support, engage in individual and fuller milieu activity, returning to the least restrictive environment when psychiatrically stable. LAQUITA BATES MD CM:PNTRANS LAQUITA BATES MD 03/26/17 0956 interface
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
--- NOTE | ~2017-03-19 | PR ---
[place], [place] PROGRESS NOTE NAME: ABIEL CHIRINOS UNIT #: [id number] ROOM: 317 DOCTOR: CHRISTINA HIGGINS BIRTHDATE: [birth year] DOS: 03/28/2017 CHIEF COMPLAINT: The patient is nonverbal. SUMMARY OF VISIT: The patient was assessed in the dining room where he was sitting in a Mariana chair. Attempts to engage him in conversation were denied. Nurses note no significant behaviors, no voiced complaints. He is not as somnolent as he has been in the past. MENTAL STATUS: I don't know, it was a limited interaction with him, he would not engage at all, but is more alert apparently per nursing and per what I reviewed in the charts and in the notes. PLAN: Looks like given his somnolence, Dr. Noel discontinued his Vraylar and Remeron to see if we could wake him up a little bit. He is doing better today and there are no behaviors, so I am going to continue with this for now. We will see how he does over the next 24 hours. We will see if he can clear out any medications if this is a contributing factor to his somnolence and go from there. KERRIE HIGGINS CNP CM:PNTRANS 1003 CHRISTINA HIGGINS 03/29/17 004 interface
--- NOTE | ~2017-03-19 | PR ---
[place], [place] PROGRESS NOTE NAME: ABIEL CHIRINOS UNIT #: [id number] ROOM: 316 DOCTOR: LAQUITA BATES MD BIRTHDATE: [birth year] DOS: 03/25/2017 CHIEF COMPLAINT: "Morning." SUMMARY OF THE VISIT: The patient was interviewed or attempted to be interviewed in the dining area. He was sitting in a Mariana chair with his breakfast in front of him. He was more alert today than yesterday; however, he still has a great deal of difficulty conversing and was not able to put in entire sentence together. He did attempt to speak and his responses were very short and simple. There was no agitation or aggression. He does have a great deal of thought processing difficulty. MENTAL STATUS: He is alert and oriented to person, unclear place or time. Mood does seem to be fairly euthymic. He is very confused and disoriented and as mentioned before, he has sparsity of thought and a great deal of processing difficulty. PLAN: Blood work to has been normal and his CAT scan of the head has been normal. Namenda has been associated with stupor and alterations in mental status, so I will discontinue it to see if this is impacting negatively on his mental status exam. We will continue to engage him in individual and fuller milieu activity with the hope then to discharge to the least restrictive environment when psychiatrically stable. LAQUITA BATES MD CM:PNTRANS [phone] LAQUITA BATES MD 03/25/17 1043 interface
--- NOTE | ~2017-03-19 | PR ---
[place], [place] PROGRESS NOTE NAME: ABIEL CHIRINOS UNIT #: [id number] ROOM: 317 DOCTOR: CHRISTINA HIGGINS BIRTHDATE: [birth year] DOS: 03/29/2017 CHIEF COMPLAINT: "Good morning." SUMMARY OF VISIT: The patient was assessed in the hallway. I asked him how his night was. He says, "I don't know, I was sleeping" and then laughed. He engaged in conversation, was pleasant, appropriate. MENTAL STATUS: He is alert and oriented to person, I think place, probably not time. No overt signs of auditory or visual hallucinations, delusions, paranoia, selam or hypomania. No side effects from medication at this point in time. PLAN: I know some of his medications were stopped in particular Vraylar and Remeron due to his somnolence. He seems to be ____ doing much better. I am going to leave him alone. I am not going to touch any of his medications. There has been no significant behaviors to warrant any adjustments. The staff has p.r.n. if they needed, but he is doing better. Superficial conversations, but much more alert. So we will continue as is and reevaluate tomorrow. KERRIE HIGGINS CNP CM:PNTRANS [id number] CHRISTINA HIGGINS 03/30/17 0149 interface
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
[~2017-03-19 22:46] MED LIST: ARICEPT10 M1 PO; COLACE100 MG PO; KLOR-CON 1010 ME1 PO; LASIX20 MG PO; NAMENDA10 MG PO; REMERON15 M2 PO; SIMVASTATIN20 MG PO; TRAMADOL HCL50 MG PO; VITAMIN D350000 UNIT PO
[2017-03-20 02:40] VITALS: BP 124/80
--- NOTE | 2017-03-20 02:40 | NUR ---
TARANABIEL Ruelas a 66 year old M admitted via ambulance from the ADMITTING as a voluntary admission. Arrived on unit at 0240. ALLERGIES: NKA. Vital signs are: 97.5-88-16 124/80. RECEIVED VERBAL CONSENT FROM LAURO CONN, FOR THE FOLLOWING the following forms with stated understanding: Authorization For The Release of Medical Information, Clothing List, Consent to Voluntary Admission and Hospitalization, Consent and Release Forms/Receipt of Rights, Acknowledgement of Advance Directive Information, Behavioral Health Consent Form, and Informed Consent of Medications. Admitted under the services of Dr[facility]. A search was conducted and hazardous articles were removed. Client was oriented to the unit. SUSAN ZEPEDA
--- NOTE | 2017-03-20 03:09 | NUR ---
CALLED HOSPITALIST CELL #[address] CARR. UPDATED ON HOME MEDS AND HEALTH HX COMPLETED. UPDATED ON REASON FOR ADMISSION. DR CARR STATED TO PUT CONSULT UNDER DR CHILDS.
[2017-03-20 03:15] VITALS: BP 124/80
--- NOTE | 2017-03-20 03:20 | NUR ---
DR CARR ON FLOOR TO SEE PT.
--- NOTE | 2017-03-20 03:52 | NUR ---
PT WAS CALM DURING ASSESSMENT. NO AGGRESSION NOTED. PT ASKED "CAN I GO HOME NOW". EXPLAINED TO PT HE WILL BE STAYING HERE AND SEE THE DR IN THE MORNING. PT WAS SHOWN TO HIS ROOM AND PT LAID INTO BED WITHOUT DIFFICULTY.
--- NOTE | 2017-03-20 05:40 | NUR ---
PT SLEPT APPROXIMATELY 4 HOURS THIS SHIFT. NO S/S OF DISTRESS. NO C/O PAIN.
--- NOTE | 2017-03-20 05:41 | NUR ---
24 HR chart check completed.
[2017-03-20 07:37] LABS: BASO # 0.1 10*3/uL (0.0-0.1); BASO % 1.7 % (0.0-1.0); EOS # 0.2 10*3/uL (0.0-0.4); EOS % 3.2 % (1.0-4.0); HEMATOCRIT 49.4 % (42.0-52.0); HEMOGLOBIN 16.1 g/dl (14.0-18.0); LYMPH # 2.3 10*3/uL (1.3-4.4); LYMPH % 32.7 % (27.0-41.0); MEAN CELL VOLUME 95.2 fl (80.0-94.0); MEAN CORPUSCULAR HGB CONC 32.6 g/dl (33.0-37.0); MEAN PLATELET VOLUME 11.8 fl (9.6-12.3); MONO # 0.7 10*3/uL (0.1-1.0); MONO % 9.1 % (3.0-9.0); NEUT # 3.8 10*3/uL (2.3-7.9); NEUT % 52.7 % (47.0-73.0); PLATELET COUNT AUTOMATED 147 10*3/uL (130-400); RED BLOOD COUNT 5.19 10*6/uL (4.50-5.90); RED CELL DISTRI WIDTH 12.6 % (0-14.5); WHITE BLOOD COUNT 7.2 10*3/uL (4.8-10.8)
[2017-03-20 07:47] VITALS: BP 114/72
[2017-03-20 07:52] LABS: ALBUMIN 3.9 gm/dl (3.1-4.5); ALKALINE PHOSPHATASE 101 U/L (45-117); BUN 25 mg/dl (7-24); CHLORIDE 104 mmol/L (98-107); CHOLESTEROL 135 mg/dL (<200); HDL CHOLESTEROL 53 mg/dl (40-60); LDL CHOLESTEROL 54 mg/dL (9-159); POTASSIUM 3.3 mmol/L (3.5-5.1); SGOT/AST 18 IU/L (3-35); SGPT/ALT 19 U/L (12-78); SODIUM 146 mmol/L (136-145); TOTAL PROTEIN 7.6 gm/dL (6.4-8.2); TRIGLYCERIDES 142 mg/dl (<150); VLDL CHOLESTEROL 28 mg/dL (6-40)
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
--- NOTE | 2017-03-20 10:19 | NUR ---
PHYSICAL THERAPY PAtient evaluated on 3, full evaluation to follow. D/C PT after evaluation, patient (I) with mobility: requires 24 hour assist for safety awareness and delayed processing. PAtient is low complexity via chart review, tests and evalaution: 16134. Thank you for this referral. Deann daugherty,PT
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
--- NOTE | 2017-03-20 11:01 | NUR ---
UNIT TO ASSESS PT.
--- NOTE | 2017-03-20 12:48 | NUR ---
Remembering Our Tastes Patient did not attend group this morning.Patient was asleep in his room then began roaming the halls. Patient would not come in to participate
--- NOTE | 2017-03-20 15:36 | NUR ---
Games Patient was in attendence for group this afternoon but did not participate. Patient asleep in a chair
--- NOTE | 2017-03-20 17:34 | NUR ---
PT CONFUSED TO ALL ASPECTS, PT UNABLE TO STATE NAME. PT MED COMPLIANT WITH MINIMAL DIFFICULTY, UNABLE TO PROVIDE MED EDUCATION D/T CONFUSION AND ALTERED MENTAL STATUS. PT MOOD IS STABLE. PT RESTLESS, PACING THE HALLS. PT AMBULATORY, GAIT STEADY. PT CONTINENT OF BOWEL AND BLADDER, EPISODES OF INCONTINENCE NOTED, CARE PROVIDED NEEDED. PT TREATMENT PLAN TARGETS AGGRESSION R/T INCREASED CONFUSION. PLAN IS TO MONITOR PT BEHAVIORS ON Q15 MIN SAFETY CHECKS, ENCOURAGE PT TO UTILIZE POSITIVE COPING SKILLS.
[2017-03-20 19:57] VITALS: BP 110/71
--- NOTE | 2017-03-20 22:30 | NUR ---
TREATMENT PLAN WITH AGGRESSION RELATED TO CONFUSION. PATIENT WITH NO AGGRESSIVE BEHAVIOR AT THIS TIME THIS SHIFT. PATIENT CALM AND PURPOSEFUL AND WANDERING ON UNIT WITH STEADY GAIT. PATIENT MEDICATION COMPLAINT TAKING PO MEDICATIONS CRUSHED IN APPLESAUCE. PATIENT CONTINENT AND INCONTINENT OF BOWEL AND BLADDER
--- NOTE | 2017-03-21 03:43 | NUR ---
24 HR chart check completed.
--- NOTE | 2017-03-21 06:52 | NUR ---
Q 15 MINUTE SAFETY CHECKS MAINTAINED. SLEPT > 7 HOURS INTERMITTENTLY THROUGHOUT SHIFT. VOICES NO COMPLAINTS OF PAIN OR DISCOMFORT AT THIS TIME
[2017-03-21 08:28] VITALS: BP 137/83
--- NOTE | 2017-03-21 12:02 | NUR ---
ON UNIT TO ASSESS PT.
--- NOTE | 2017-03-21 14:26 | NUR ---
PT CONFUSED TO ALL ASPECTS. PT MED COMPLIANT WITHOUT DIFFICULTY, UNABLE TO PROVIDE MED EDUCATION D/T CONFUSION AND ALTERED MENTAL STATUS. PT MOOD IS LABILE. PT CALM, RESTLESS AND PACING THE HALLS FOR MOST OF THE SHIFT. PT GOING INTO OTHER'S ROOMS, REDIRECTED WITH MINIMAL DIFFICULTY. NO COMBATIVE OR AGGRESSIVE BEHAVIOR NOTED. NO HALLUCIANTIONS OR DELUSIONS NOTED. PT AMBLATORY THROUGHOUT UNIT, GAIT STEADY. PT CONTINENT OF BOWEL AND BLADDER WITH EPISODES OF INCONTINENCE NOTED, CARE PROVIDED NEEDED. PT TREATMENT PLAN TARGETS #1- AGGRESSION R/T INCREASED CONFUSION. PLAN IS TO PRESENT REALITY TO PT WITH EACH INTERACTION AND NEEDED, MONITOR PT BEHAVIORS ON Q15 MIN SAFETY CHECKS, ENCOURAGE PT TO UTILIZE POSITIVE COPING SKILLS.
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
[2017-03-21 20:00] VITALS: BP 108/76
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
--- NOTE | 2017-03-21 21:10 | NUR ---
NON VERBAL. WANDERING AROUND IN HALLWAY. LIKES TO STAND BEHIND GERICHAIR CLIENTS. MOVES AWAY WITH MUCH ENCOURAGEMENT AND SUPPORT. ATE PART OF SNACK BUT HAD TO BE FED. DRANK 2 CARTONS OF MILK WITH ENCOURAGEMENT. UNABLE TO DO ANY EFFECTIVE TEACHING AT THIS TIME. CONTINUE WITH EMOTIONAL SUPPORT AND CLOSE MONITORING.
--- NOTE | 2017-03-22 02:05 | NUR ---
24 HR chart check completed.
--- NOTE | 2017-03-22 06:00 | NUR ---
HAS SLEPT WELL ALL NIGHT. MOVES SELF FREELY IN BED WITHOUT ASSITANCE
[2017-03-22 07:56] VITALS: BP 124/76
--- NOTE | 2017-03-22 10:47 | NUR ---
ON UNIT TO ASSESS PT.
--- NOTE | 2017-03-22 11:18 | NUR ---
PT CONFUSED TO ALL ASPECTS. PT MED COMPLIANT WITHOUT DIFFICUTLY, UNABLE TO PROVIDE MED EDUCATION D/T CONFUSION AND ALTERED MENTAL STATUS. PT MOOD IS LABILE. NO HALLUCINATIONS OR DELUSIONS NOTED. NO SUICIDAL IDEATIONS NOTED. NO AGGRESSIVE OR COMBATIVE BEHAVIOR NOTED AT THIS TIME. PT RESTLESS AT TIMES, PACING THE HALLS. PT AMBULATORY THROUGHOUT UNIT,GAIT STEADY. PT CONTINENT OF BOWEL AND BLADDER, EPISODES OF INCONTINENCE NOTED, CARE PROVIDED NEEDED. TREATMENT PLAN TARGETS #1 AGGRESSION R/T INCREASED CONFUSION. PLAN IS TO MONITOR PT BEHAVIORS ON Q15 MIN SAFETY CHECKS, PRESENT REALITY TO PT WITH EACH INTERACTION AND NEEDED.
--- NOTE | 2017-03-22 17:00 | NUR ---
PT APPROACHED FOR DINNER, PT BECOMING AGGRESSIVE ATTEMPTING TO STRIKE OUT AT STAFF. PT ABLE TO BE REDIRECTED WITHOUT DIFFICULTY. PT WALKING INTO DINING ROOM, GAIT UNSTEADY, STAFF IS ATTEMPTING TO DIRECT PT TO SEAT FOR DINNER, PT HALLUCINATING, LEANING OVER ATTEMPTING TO WIPE SOMETHING OFF THE FLOOR AND PICKING AT UNFORSEEN ITEMS. PT BECOMING AGGRESSIVE WITH REDIRECTION. PT PLACED IN GERICHAIR AT THIS TIME FOR DINNER. QUE WHALEN, UPDATED ON PT AGRESSIVE BEHAVIORS, NEW ORDERS RECEIVED.
[2017-03-22 19:46] VITALS: BP 100/73
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
--- NOTE | 2017-03-22 20:14 | NUR ---
SPIT OUT COLACE
--- NOTE | 2017-03-22 22:35 | NUR ---
PLACED IN BED WITH ASSIST OF 2. CLIENTS COGNATIVE ABILITIES ARE VERY LIMITED. UNABLE TO UNDERSTAND SIMPLE COMMANDS. AGGITATONS AND AGGRESSION CONTINUE TO ESCALATE FROM EARLIER TODAY. UNABLE TO REDIRECT. ASSIST OF 2 REQUIRED TO GET HIM FROM CHAIR TO BED. WILL CONTINUE TO MONITOR
--- NOTE | 2017-03-23 05:42 | NUR ---
24 HR chart check completed.
[2017-03-23 08:00] VITALS: BP 111/68
--- NOTE | 2017-03-23 09:28 | NUR ---
TREATMENT TEAM WAS HELD WITHTHE FOLLOWING: DR. BATES, RNs, ATs, SW. RN REQUESTED EXELON BE CHANGED FROM PATCH TO PILL DUE TO PT REMOVING PATCH. AND BOOST DUE TO PT NOT EATING MUCH. APPROVED CHANGES. NO DISCHARGE DATE.
--- NOTE | 2017-03-23 10:50 | NUR ---
RUTHANN faxed update to Mervin Hoff of [employer] so that they can submit an update to the [facility].
--- NOTE | 2017-03-23 11:23 | NUR ---
ON UNIT TO ASSESS PATIENT, MADE AWARE OF INCREASINGLY POOR APPETITE AND REFUSAL OF BREAKFAST. MADE AWARE PT SPIT OUT MICRO K, REQUESTED DIFFERENT FORM OF POTASSIUM SUPPLEMENT. NEW ORDERS RECEIVED.
--- NOTE | 2017-03-23 13:28 | NUR ---
Exercise/Letter to Me Patient was in attendence but did not participate. Patient was asleep in a chair
--- NOTE | 2017-03-23 15:46 | NUR ---
Social PACHECO Patient was in attendence for group but did not participate. Patient was asleep in a chair
--- NOTE | 2017-03-23 18:32 | NUR ---
PATIENT IS ALERT AND CONFUSED THIS SHIFT. EASILY AGITATED AT TIMES D/T CONFUSION. REDIRECTED T/O THE SHIFT WITH MINIMAL EFFECT FOR SHORT PERIODS OF TIME. NON VERBAL MOST OF THE TIME, WHEN HE DOES SPEAK, SPEECH IS NON SENSICAL. APPETITE REMAINS POOR, TAKING BOOST SUPPLEMEMTS WELL. RECEIVED A SHOWER THIS SHIFT. SEE [facility] FLOWSHEET FOR SPECIFIC MONITORING. CONTINUE Q15 MIN OBSERVATION CHECKS.
[2017-03-23 20:30] VITALS: BP 110/66
--- NOTE | 2017-03-23 21:00 | NUR ---
GOT SELF OUT OF MERE CHAIR AND STARTED WALKING IN HALLWAY. GAIT STEADY. CLIENT MORE VERBAL TONIGHT. DID EAT SNACK AND DRANK BOOST. CONVERSATION CONTINUES WORD SALAD. HE WENT TO HIS ROOM AND WENT TO BED. WILL MONITOR FOR WANDERING.
--- NOTE | 2017-03-23 23:41 | NUR ---
UP WANDERING AND WAS INCONTINENT OF URINE ON THE FLOOR. AREA CLEANED, CLIENT CLEANED UP AND RETURNED TO ROOM
--- NOTE | 2017-03-24 04:40 | NUR ---
24 HR chart check completed.
--- NOTE | 2017-03-24 05:36 | NUR ---
SLEPT WELL MOST SHIFT
[2017-03-24 08:33] VITALS: BP 128/74
--- NOTE | 2017-03-24 09:10 | NUR ---
TREATEMETN TEAM WAS HELD WITH THE FOLLOWING: DR. BATES, RESIDENT, MEDICAL STUDENT, RNs, AT, SWs. DR. BATES IS STOPPING TRAMADOL TO SEE IF IT IS HAVING AN ADVERSE EFFECT ON PT. SW INFORMED THAT [facility] WILL ACCEPT PT BACK IF THEY CAN NOT FIND ANOTHER HOME FOR PT. [facility] WORKING ON THIS. DR. BATES FEELS SOMETHING MEDICALLY MAYBE GOING ON WITH PT AND ORDERED CAT SCAN OF HEAD.
--- NOTE | 2017-03-24 09:54 | NUR ---
PT MEDICATED WITH ATIVAN 1 MG PO PRN, PER , IN PREP FOR CT SCAN.
--- NOTE | 2017-03-24 10:48 | NUR ---
ON UNIT TO ASSESS PT.
--- NOTE | 2017-03-24 13:24 | NUR ---
Exercise/Riddles & Games Patient was in attendence for group but did not paticipate. Patient had no angry outburst or aggresive behaviors while in group. Patient did not participate even when prompted
--- NOTE | 2017-03-24 15:09 | NUR ---
per insurance, inpatient u stay is approved
--- NOTE | 2017-03-24 15:57 | NUR ---
PT ALERT TO PERSON ONLY. PT MED COMPLIANT WITHOUT DIFFICUTLY, UNABLE TO PROVIDE MED EDUCATION D/T CONFUSION AND ALTERED MENTAL STATUS. PT MOOD IS IRRITABLE AT TIMES. PT RESTLESS AT TIMES, PACING THE HALLS. PT CAN BECOME AGITATED WITH STAFF DURING CARE. NO HALLUCINATIONS OR DELUSIONS NOTED AT THIS TIME. PT AMBULATORY THROUGHOUT UNIT, GAIT UNSTEADY AT TIMES, STAFF STAND-BY ASSISTANCE. PT CONTINENT OF BOWEL AND BLADDER, EPISODES OF INCONTINENCE NOTED, CARE PROVIDED NEEDED, PT CAN BECOME AGGRESSIVE WITH CARE. PT TREATMENT PLAN TARGETS #1 AGGRESSION R/T INCREASED CONFUSION. PLAN IS TO MONITOR PT BEHAVIORS ON Q15 MIN SAFETY CHECKS, PRESENT REALITY TO PT WITH EACH INTERACTION.
[2017-03-24 20:00] VITALS: BP 106/81
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
--- NOTE | 2017-03-25 | NUR ---
PATIENT LAYING DOWN WITH EYES CLOSED. RESPIRATIONS EASY AND REGULAR, NO SIGNS OR SYMPTOMS OF DISTRESS NOTED. PRN ATIVAN GIVEN AT 2224 EFFECTIVE AT THIS TIME.
--- NOTE | 2017-03-25 02:55 | NUR ---
24 HOUR CHART CHECK COMPLETED.
--- NOTE | 2017-03-25 06:17 | NUR ---
PATIENT ALERT TO PERSON ONLY. MEDICATION COMPLIANT WITHOUT DIFFICULTY. UNABLE TO PROVIDE MED EDUCATION D/T CONFUSION AND ALTERED MENTAL STATUS. MOOD IRRITABLE AT TIMES.PACES HALLWAYS DURING BEGINNING OF SHIFT, GAIT UNSTEADY AT TIMES, STAFF STAND BY ASSISTANCE.OBSERVED ON Q 15 MIN CHECKS TO HAVE SLEPT APPROX 5 HOURS UNINTERRUPTED. PATIENT CONTINENT OF BOWEL AND BLADDER WITH EPISODES OR INCONTINENCE NOTED, INCONTINENT CARE PROVIDED BY STAFF, PT CAN BECOME AGGRESSIVE WITH CARE. PT TREATMENT PLAN TARGETS AGGRESSION R/T INCREASED CONFUSION. PLAN IS TO MONITOR PT BEHAVIORS Q 15 MIN SAFETY CHECKS, PRESENT REALITY TO PATIENT WITH EACH INTERACTION. PATIENT CURRENTLY IN BED WITH EYES CLOSED. RESPIRATIONS EASY AND REGULAR, NO SIGNS OR SYMPTOMS OF DISTRESS NOTED. REFER TO [facility] FLOWSHEET FOR SPECIFIC MONITORING.
[2017-03-25 07:48] VITALS: BP 121/70
--- NOTE | 2017-03-25 08:38 | NUR ---
03/24/17 Afternoon Patient was in attendence for group but did not participate. Patient sat at another table and when this staff member asked if he would like to put a puzzle together patient stated "Why would I do it?" Explained putting puzzle together to patient who then would not respond. While patient sat at the table during group He displayed no angry outburst or aggression
--- NOTE | 2017-03-25 09:29 | NUR ---
TREATMENT TEAM WAS HELD WITH THE FOLLOWING : DR. BATES, RNs, SW, AT. DR. BATES [facility]. INCREASED IN AGGRESSION.
--- NOTE | 2017-03-25 10:31 | NUR ---
ON UNIT TO ASSESS PT.
--- NOTE | 2017-03-25 11:21 | NUR ---
Exercises and remenissing group Patient present in activity room throughout group however lethargic and sleeping in chair. Patient unable to wake up to attend to group.
--- NOTE | 2017-03-25 15:05 | NUR ---
Meaningful Me Patient present in activity room when group was being compleated however slept throughout group. Patient unable to be awakend for group.
--- NOTE | 2017-03-25 18:34 | NUR ---
PT ALERT TO PERSON ONLY. PT MED COMPLIANT WITHOUT DIFFICULTY, UNABLE TO PROVIDE MED EDUCATION D/T INCREASED CONFUISON AND ALTERED MENTAL STATUS. PT MOOD IS IRRITABLE AT TIMES. PT CAN BECOME AGITATED AND AGGRESSIVE AT TIMES AND WITH HANDS ON CARE. MUTLTIPLE STAFF ASSISTANCE NEEDED FOR HANDS ON CARE. PT CALMED ONCE CARE COMPLETED. NO HALLUCIANTIONS OR DELUSIONS NOTED. PT GAIT UNSTEDAY, PLACED IN GERICHAIR TO PROMOTE SAFETY. PT INCONTINENT OF BOWEL AND BLADDER, CARE PROVIDED NEEDED. PT TREATMENT PLAN TARGETS AGGRESSION R/T INCREASED CONFUSION. PLAN IS TO MONITOR PT BEHAVIORS ON Q15 MIN SAFTEY CHECKS AND REDIRECT NEEDED.
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
[2017-03-25 20:00] VITALS: BP 114/80
--- NOTE | 2017-03-25 20:10 | NUR ---
PT RESTING QUIELTY IN CHAIR, MEDICATION COMPLIANT WITH OUT DIFFICULTY. PRN ATIVAN EFFECTIVE
--- NOTE | 2017-03-25 23:53 | NUR ---
24 HR chart check completed.
--- NOTE | 2017-03-26 05:41 | NUR ---
PT ALERT TO PERSON ONLY, UNABLE TO PRESENT REALITY OR ORIENT TO PLACE AND TIME. PT COMBATIVE TO ALL ASPECTS OF CARE AT TIMES. CONTINUE TO REORIENT AND REDIRECT, FALLING STAR PROGRAM Q 15 MIN CHECKS FOR SAFETY, YELLOW SOCKS AND SINAGE. HIGH FALL PRECAUTIONS MAINTAINED DUE TO UNSTEADY GAIT. UNABLE TO COMPREHEND MED EDUCATION AT THIS TIME, CONTINUE TO INFORM PATIENT OF MEDICATIONS ADMINISTERED AND ASSESS FOR POSSIBLE SIDE EFFECTS AND EFFECTIVENESS. PT INCONTINENT OF BOWEL AND BLADDER, HYGIENE CARE PROVEIDED. CONTINUE POC SEE FLOW SHEET FOR SPECIFIC MONITORING.
[2017-03-26 07:58] VITALS: BP 108/75
--- NOTE | 2017-03-26 09:20 | NUR ---
TREATMENT TEAM WAS HELD WITH THE FOLLOWING: DR. PAULO CNP, MEDICAL STUDENT, RNs, SWs, AT. RECEIVED PRN LAST NIGHT.
--- NOTE | 2017-03-26 11:13 | NUR ---
ABIEL HAS BEEN SLEEPING MOST OF THE SHIFT THUS FAR. OPEN EYES AND LOOKS AT THIS NURSE WHEN NAME IS CALLED. REFUSED BREAKFAST THIS MORNING. WILL CONTINUE TO ENCORAGE FLUIDS. NO COMBATIVE BEHAVIORS THUS FAR. NO HALLUCINATIONS OBSERVED. WILL CONTINUE TO MONITOR.
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
--- NOTE | 2017-03-26 17:13 | NUR ---
SW HAD A [facility]ISIT [facility] INFORMING THAT pT IS ACCEPTED AT [facility] AND BED IS BEING HELD UNTIL PT IS READY FOR DISCHARGE. 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
[2017-03-26 19:50] VITALS: BP 117/67
--- NOTE | 2017-03-27 05:27 | NUR ---
24 HR chart check completed.
--- NOTE | 2017-03-27 05:44 | NUR ---
PT SLEPT APPROXIMATELY 8 HOURS THIS SHIFT. NO S/S OF DISTRESS NOTED. NO C/O PAIN. FALL PRECAUTIONS MAINTAINED. Q15 MINUTE SAFETY CHECKS MAINTAINED. PT IS ALERT AND CONFUSED. LABILE AT TIMES. PT WOULD SWING HIS FISTS AND ARMS DURING HIS SLEEP. NO HALLUCINATIONS OR DELUSIONS NOTED. NO SI/HI NOTED. MEDICATION COMPLIANT.PT WAS FED SNACK PLUS AN EXTRA APPLESAUCE IN THE PM. SEE [facility] FLOWSHEET FOR SPECIFIC MONITORING.
--- NOTE | 2017-03-27 07:34 | NUR ---
Morning 03/26/17 Conversation and Goals Patient did not attend group,patient asleep in his room
[2017-03-27 08:05] VITALS: BP 110/60
[2017-03-27 08:53] LABS: BASO # 0.1 10*3/uL (0.0-0.1); BASO % 1.3 % (0.0-1.0); EOS # 0.2 10*3/uL (0.0-0.4); EOS % 2.4 % (1.0-4.0); HEMATOCRIT 44.3 % (42.0-52.0); HEMOGLOBIN 14.3 g/dl (14.0-18.0); LYMPH # 2.6 10*3/uL (1.3-4.4); LYMPH % 28.6 % (27.0-41.0); MEAN CELL VOLUME 95.9 fl (80.0-94.0); MEAN CORPUSCULAR HGB CONC 32.3 g/dl (33.0-37.0); MEAN PLATELET VOLUME 12.1 fl (9.6-12.3); MONO # 1.1 10*3/uL (0.1-1.0); MONO % 11.8 % (3.0-9.0); NEUT % 55.6 % (47.0-73.0); PLATELET COUNT AUTOMATED 155 10*3/uL (130-400); RED BLOOD COUNT 4.62 10*6/uL (4.50-5.90); RED CELL DISTRI WIDTH 12.6 % (0-14.5)
[2017-03-27 09:06] LABS: ALBUMIN 3.1 gm/dl (3.1-4.5); ALKALINE PHOSPHATASE 91 U/L (45-117); BUN 23 mg/dl (7-24); CHLORIDE 108 mmol/L (98-107); CREATININE 0.97 mg/dL (0.70-1.30); POTASSIUM 3.6 mmol/L (3.5-5.1); SGOT/AST 15 IU/L (3-35); SGPT/ALT 17 U/L (12-78); SODIUM 144 mmol/L (136-145); TOTAL PROTEIN 6.9 gm/dL (6.4-8.2)
--- NOTE | 2017-03-27 10:02 | NUR ---
TREATMETN TEAM WAS HELD WITH THE FOLLOWING: DR. BATES, MEDICAL STUDENT, RNs, AT, SW. SW INFORMED THAT PT WAS ACCEPTED AT [facility]. DR. BATES ORDERED STAT LABS. PT MAY GO MEDICAL. PENDING DISCHARGE NEXT WEEK.
--- NOTE | 2017-03-27 13:11 | NUR ---
Exercising/Reminiscing/Funny Things Patient was in attendence for group but did not participate. Patient tried removing his alarm and also ripped his shirt trying to get it off. Patient was removed from group
--- NOTE | 2017-03-27 15:23 | NUR ---
PT IS MORE ALERT THIS SHIFT. HAS BEEN ATTEMPTING TO HIT STAFF AT TIMES WITH PERIODS OF AGITATION, EASILY RESOLVED WHEN PERSONAL SPACE IS PROVIDED. ABLE TO GIVE MOST MEDICATION THIS AFTERNOON AFTER PT WAS MORE ALERT. REMAINS CONFUSED PER USUAL WITH LIMITED SPEECH. SPEECH IS NONSENSICAL WHEN HE IS TALKING. UNABLE TO ANWSER QUESTIONS APPROPRIATELY. NO HALLUCINATIONS OR DELUSIONS NOTED. WILL CONTINUE TO ENCOURAGE PO INTAKE AND FLUID INTAKE. WILL CONTINUE TO MAINTAIN Q15 OBSERVATION CHECKS PER ORDERS. FALLING PRECAUTIONS MAINTAINED PER POLICY. SEE [facility] [[email or web address] FLOWSHEET FOR SPECIFIC MONITORING.
--- NOTE | 2017-03-27 15:44 | NUR ---
JUNIOR Patient was in attendence for group but did not participate. Patient threw card on floor while trying to get out of his chair. Patient was very confused but showed no signs of aggression or had any angry outburst while in group
[2017-03-27 20:00] VITALS: BP 101/70
--- NOTE | 2017-03-28 03:11 | NUR ---
24 HR chart check completed.
--- NOTE | 2017-03-28 05:48 | NUR ---
PT SLEPT APPROXIMATELY 5 HOURS THIS SHIFT. FALL PRECAUTIONS MAINTAINED. PT REMAINS CONFUSED WITH ST/LT MEMORY DEFICITS. NO HALLUCINATIONS OR DELUSIONS NOTED. PT PACES HALLWAY AND RESTLESS. MEDICATION COMPLIANT. Q15 MINUTE SAFETY CHECKS MAINTAINED. STABLE MOOD. PT DRANK BOOST HOWEVER DID NOT EAT A SNACK. SEE [facility] FLOWSHEET FOR SPECIFIC MONITORING.
[2017-03-28 08:40] VITALS: BP 95/66
--- NOTE | 2017-03-28 11:43 | NUR ---
Goals, remenissing and would you rather Patient present and quiet in activity room throught group. Patient did not actively participate in group.
--- NOTE | 2017-03-28 17:17 | NUR ---
CONFUSED, DISORIENTED, ST/LT MEMORY DEFICITS, STABLE MOOD, PACES, HAS BEEN REDIRECTABLE, HAS BEEN FOLLOWING 1-2 STEP DIRECTIONS, CALM, MED COMPLIANT, TAKES PILLS CRUSHED, UP AND STEADY,
[2017-03-28 20:12] VITALS: BP 98/68
--- NOTE | 2017-03-28 22:47 | NUR ---
PT CONFUSED. ANGRY/IRRITABLE AT TIMES. PACES UP AND DOWN HALLWAY. RESTLESS. INTRUSIVE. PT WILL ATTEMPT TO ENTER OTHER PT ROOMS AND IS EASILY REDIRECTED MOST OF THE TIME. AFTER CONTINUOUS REDIRECTION PT WAS STARTING TO GET IRRITABLE AT STAFF. PT REDIRECTED TO HIS ROOM MULTIPLE TIMES. PT WAS NOTED CARRYING HIS DEPEND DOWN THE HALLWAY LOOKING FOR A TRASH CAN. PT DID NOT STRIKE OUT AT STAFF OR OTHER PATIENTS. FALL AND ELOPEMENT PRECAUTIONS MAINTAINED. Q15 MINUTE SAFETY CHECKS MAINTAINED. SEE [facility] FLOWSHEET FOR SPECIFIC MONITORING.
--- NOTE | 2017-03-29 05:44 | NUR ---
24 HR chart check completed.
--- NOTE | 2017-03-29 05:46 | NUR ---
PT SLEPT APPROXIMATELY 7 HOURS THIS SHIFT. NO S/S OF DISTRESS. NO C/O PAIN. SEE [facility] FLOWSHEET FOR SPECIFIC MONITORING.
[2017-03-29 07:43] VITALS: BP 96/65
--- NOTE | 2017-03-29 19:54 | NUR ---
24 HR chart check completed.
[2017-03-29 20:20] VITALS: BP 98/66
--- NOTE | 2017-03-29 22:50 | NUR ---
PT REMAINS CONFUSED. STABLE MOOD. NO ANGRY OUTBURSTS NOTED. NO HALLUCINATIONS OR DELUSIONS NOTED. REMAINS RESTLESS AND PACES UP AND DOWN THE [place]IN[place]. Q15 MINUTE CHECKS MAINTAINED. FALL PRECAUTIONS MAINTAINED. ELOPEMENT PRECAUTIONS MAINTAINED. SEE [facility] FLOWSHEET FOR SPECIFIC MONITORING. NO S/S OF DISTRESS NOTED. NO C/O PAIN.
--- NOTE | 2017-03-30 00:31 | NUR ---
PT UP WANDERING HALLWAY. URINATED IN HALLWAY. REDIRECTED BACK TO BED MULTIPLE TIMES. REDIRECTION EFFECTIVE FOR A SHORT TIME.
--- NOTE | 2017-03-30 06:41 | NUR ---
PT SLEPT APPROXIMATELY 5 HOURS THIS SHIFT. NO S/S OF DISTRESS. NO C/O PAIN.
[2017-03-30 08:21] VITALS: BP 106/64
--- NOTE | 2017-03-30 08:34 | NUR ---
NOTIFIED OF PT PENDING DISCHARGE FOR EARLY THIS AFTERNOON AND MED REC NEEDING COMPLETED.
--- NOTE | 2017-03-30 08:49 | NUR ---
TREATNEMT TEAM WAX HELD WITH THE FOLLOWING: DR. BATES, RNs, SWs, AT. DR. BATES STATED THAT PT CAN BE DISCHARGED TO [place]. SW WILL MAKE ARRANGEMENTS FOR DISCHARGE TO [facility].
--- NOTE | 2017-03-30 08:51 | NUR ---
RUTHANN NOTIFIED [facility] THAT PT WA BEING DISCHARGED TODAY.
[2017-03-30] MEDS ORDERED: RIVASTIGMINE TAR3 M1 PO (09:02)
[2017-03-30] MEDS ORDERED: HYDROXYZINE PAM25 M1 PO (09:02)
--- NOTE | 2017-03-30 09:23 | NUR ---
ON UNIT TO ASSESS PT.
--- NOTE | 2017-03-30 14:11 | NUR ---
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
--- NOTE | 2017-03-30 15:00 | NUR ---
PT DISCHARGED TO [facility]IA [facility].
--- NOTE | 2017-03-30 15:49 | NUR ---
Jeopardy coping skills Patient did not attend group. Patient happily declined group " Im not going in there." Patient walked past the window several times looking in and waving at staff.
--- NOTE | 2017-03-30 15:51 | NUR ---
PT ALERT TO PERSON ONLY. PT MED COMPLIANT WITHOUT DIFFICULTY. PT MOOD IS STABLE. PT CALM, INTERACTIVE WITH ST6AFF AND PEERS. PT RESTELSS AND PACING. NO HALLUCINATIONS OR DELUSIONS NOTED. PT DENIES ANY HOMICIDAL/SUICIDAL THOUGHTS. PT AMBULATORY, GAIT STEADY. PT CONTINENT OF BOWEL AND BLADDER, EPISODES OF INCONTINENCE NOTED, CARE PROVIDED NEEDED. PT TREATMENT PLAN RESOLVED. PT HAS HAD NO EPISODES OF AGGRESSION.
--- NOTE | 2017-03-30 15:59 | NUR ---
NURSE TO NURSE REPORT CALLED IN TO ASHLEE AT [facility].
--- NOTE | 2017-03-30 19:43 | NUR ---
PT WAS DISCHARGED TO [facility] VIA [facility]. DISCHARGE PAPERWORK TO BE MAILED TO [facility] FOR SIGNATURE.
== END 2017-03-30 15:00 | disposition other institution (70) | DRG 57 ==
LOC: 3N 22:46
PROVIDERS: Psychiatry & Neurology Psychiatry; ADMIT Psychiatry & Neurology Psychiatry
DX: G30.9 Alzheimer's disease, unspecified (principal); F02.81 Dementia in other diseases classified elsewhere, unspecified severity, with behavioral disturbance; I50.9 Heart failure, unspecified; F33.9 Major depressive disorder, recurrent, unspecified; E87.6 Hypokalemia; G89.29 Other chronic pain; E78.1 Pure hyperglyceridemia; G47.00 Insomnia, unspecified; E55.9 Vitamin D deficiency, unspecified; D75.89 Other specified diseases of blood and blood-forming organs; E86.0 Dehydration; Z74.01 Bed confinement status; Z80.9 Family history of malignant neoplasm, unspecified; Z79.899 Other long term (current) drug therapy

== ENCOUNTER 2017-06-01 22:28 | Inpatient (IN) | payer MEDICAID ==
[~2017-06-01] VITALS: Ht 177.8 cm; Wt 67.1 kg
--- NOTE | ~2017-06-01 | PR ---
[place], [place] PROGRESS NOTE NAME: ABIEL CHIRINOS [facility] #: [id number] UNIT #: [id number] ROOM: 316 DOCTOR: Rico BURT,RENÉE BIRTHDATE: [birth year] DOS: 06/06/2017 PSYCHIATRIC PROGRESS NOTE SUBJECTIVE: The patient seen and spoke with the staff. Per staff, the patient is pleasantly confused, gets irritable at times, but no overt behavioral problems or issues. He is compliant with his medication. The patient was in his bed. He reports doing okay, but then started talking which did not make any sense. He was not in any distress. He is compliant with his medication and there is no side effect from the medication. MENTAL STATUS EXAMINATION: The patient was pleasant and cooperative, described his mood as "okay." Affect and mood congruent. Thought process is with confabulation and disorganization. He denied auditory or visual hallucination. No delusion or paranoia noted. Denied suicidal ideation, intent or plan. He also denied homicidal ideation, intent or plan. Insight and judgment impaired. ASSESSMENT: 1. Alzheimer's dementia, severe with behavioral disturbances. 2. Brief psychotic disorder. PLAN: 1. Continue current medications and care. 2. Continue redirection. 3. Supportive care. 4. Encourage activity and fuller milieu. RENÉE BURT MD CM:PNTRANS [phone] Rico BURT 06/07/17 0308 interface
--- NOTE | ~2017-06-01 | PR ---
[place], [place] PROGRESS NOTE [id number] UNIT #: [id number] ROOM: 316 DOCTOR: LAQUITA BATES MD BIRTHDATE: [birth year] DOS: 06/09/2017 CHIEF COMPLAINT: "If that is what you say and I guess that is so." SUMMARY OF THE VISIT: The patient was interviewed as he was approaching the doorway and as I was entering the psychiatric unit. He engaged in brief superficial conversation. His responses made absolutely no sense to the questions I asked of him. However, he did follow me down the hallway as I walked towards the dining area. He continues to pace almost nonstop resting only once in a while for nourishment and even then requires a great deal of support and redirection to eat or to toilet. He remains grossly confused overall. MENTAL STATUS: He is alert and oriented to self. It is certainly unclear if he knows he is in the hospital and he is not oriented to time. His responses are short simple, vague and more often than inappropriate to the questions asked of him. He looks perplexed and bewildered. There is no agitation when he interacted with me. No evidence of any type of selam or psychosis. Short term, intermediate memory are grossly impaired. PLAN: I will maximize out both the Exelon and Namenda increasing Namenda to 10 mg twice a day and the Exelon capsules to 6 mg twice a day. We will continue to attempt at best to engage him in individual and fuller milieu activities with the hope to return then to [place] or the least restrictive environment when psychiatrically stable. LAQUITA BATES MD CM:PNTRANS [phone] LAQUITA BATES MD 06/09/17 1118 interface
--- NOTE | ~2017-06-01 | PR ---
[place], [place] PROGRESS NOTE [id number] UN[facility] #: [id number] ROOM: 316 DOCTOR: LAQUITA BATES MD BIRTHDATE: [birth year] DOS: 06/08/2017 CHIEF COMPLAINT: "Morning." SUMMARY OF THE VISIT: The patient was resting quietly in bed, took me a little bit of time to arouse him. He did wake up rather perplexed and bewildered. He was able to mouth softly morning, but then went back to bed. Nurses report he continues to exhibit extreme confusion and disorientation. He has a hard time sitting still and constantly paces. I do believe he gets easily overwhelmed by crowds and people and tends to avoid these situations. He cannot sit long enough to necessarily eat, so we have to give him finger foods as he grazes in the adame. MENTAL STATUS: He is alert and oriented to self only. He is very confused and disoriented and cannot form even a simple sentence. There was no agitation or aggression noted. PLAN: I will increase Exelon caps from 3 mg twice a day to 4.5 mg twice a day while simultaneously increasing Namenda from 5 mg twice a day to 10 mg in the morning and 5 mg at night. I will also start him on Deplin 15 mg at bedtime, just in case he does have an issue with neurotransmitter synthesis. He is so confused and disoriented at such a relatively young age, I think it is at least worth a trial basis for several months to see if we can impact positively on his cognition. We will attempt to engage him in individual and fuller milieu activities, returning to the least restrictive environment when psychiatrically stable. LAQUITA BATES MD CM:PNTRANS LAQUITA BATES MD 06/08/1743 interface
--- NOTE | ~2017-06-01 | PR ---
[place], [place] PROGRESS NOTE [id number] #: [id number] ROOM: 316 DOCTOR: Rico BURT,RENÉE BIRTHDATE: [birth year] DOS: 06/07/2017 SUBJECTIVE: The patient seen and spoke with the staff. Per staff, the patient is doing well. Pleasantly confused walks on the hallway. No behavioral problems or issues, med compliant. The patient was pleasant, cooperative. He was walking on the hallway. When I asked him how he is doing, he said "I don't know." Then, he continues walking on the hallway. MENTAL STATUS EXAMINATION: The patient was pleasant and cooperative. Described his mood as "I don't know." Affect euthymic. Speech is normal volume and tone. Thought processes with confabulation. Denied auditory or visual hallucination. No delusion or paranoia noted. Denied suicidal ideation, intent or plan. He also denied homicidal ideation, intent or plan. Insight and judgment impaired. ASSESSMENT: 1. Dementia with behavioral disturbances. 2. Brief psychotic disorder. PLAN: 1. Continue current medication and care. 2. Continue redirection. 3. Final medication management and discharge plan by the regular team. RENÉE BURT MD CM:TONI [phone] Rico BURT 06/07/17 2340 interface
--- NOTE | ~2017-06-01 | PR ---
[place], [place] PROGRESS NOTE NAME: ABIEL CHIRINOS UNIT #: [id number] ROOM: 316 DOCTOR: LAQUITA BATSE MD BIRTHDATE: [birth year] DOS: 06/11/2017 CHIEF COMPLAINT: "He laughed as I approached." SUMMARY OF THE VISIT: The patient was interviewed or attempted to be interviewed as he was walking up and down the hallway. He had a piece of Nepalese toast in his hand and he was eating it gradually. When I did ask if he needed any more food, he just laughed and continued on his way. Nurses report that overall his behavior has trended towards more pleasantry. He is much more cooperative. He has not been exit seeking. He has not been physically aggressive towards self or others. He does seem to be tolerating the current medication regimen well and I see no sedation, somnolence or other type of side effects. MENTAL STATUS: He is alert to self, but very grossly confused. He is not able to respond appropriately to any questions nor is he even able to follow simple commands at times. PLAN: His last valproic acid level was high therapeutic at 92.4. I will recheck a valproic acid level in the a.m. and proceed with discharge to [place] when stable. LAQUITA BATES MD CM:PNTRANS [id number] LAQUITA BATES MD 06/11/1736 interface
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
[~2017-06-01 22:28] MED LIST changes: +HYDROXYZINE PAM25 M1 PO; +RIVASTIGMINE TAR3 M1 PO
[2017-06-01] MEDS ORDERED: MELATONIN3 MG PO (22:59)
[2017-06-01] MEDS ORDERED: LIPITOR10 MG PO (23:00)
[2017-06-01] MEDS ORDERED: COLACE100 MG PO (23:01)
[2017-06-02 10:52] VITALS: BP 111/69
[2017-06-02 14:38] LABS: BILIRUBIN NEGATIVE (NEGATIVE); BLOOD TRACE-INTACT (NEGATIVE); CLARITY CLEAR (CLEAR); COLOR YELLOW (YELLOW); GLUCOSE NEGATIVE (NEGATIVE); KETONE NEGATIVE (NEGATIVE); LEUKO ESTERASE NEGATIVE (NEGATIVE); NITRITE NEGATIVE (NEGATIVE); UROBILINOGEN 0.2 E.U./dl (0.2-1.0)
[2017-06-02 14:43] LABS: BASO # 0.1 10*3/uL (0.0-0.1); EOS # 0.2 10*3/uL (0.0-0.4); EOS % 2.1 % (1.0-4.0); HEMOGLOBIN 13.4 g/dl (14.0-18.0); LYMPH % 25.2 % (27.0-41.0); MEAN CELL VOLUME 96.7 fl (80.0-94.0); MEAN CORPUSCULAR HGB 31.6 pg (27.0-31.0); MEAN CORPUSCULAR HGB CONC 32.7 g/dl (33.0-37.0); MEAN PLATELET VOLUME 10.6 fl (9.6-12.3); MONO # 0.7 10*3/uL (0.1-1.0); MONO % 8.8 % (3.0-9.0); NEUT % 62.5 % (47.0-73.0); PLATELET COUNT AUTOMATED 189 10*3/uL (130-400); RED BLOOD COUNT 4.24 10*6/uL (4.50-5.90)
[2017-06-02 14:50] LABS: BACTERIA TRACE; EPITHELIAL CELLS 0-2; WBC 0-2 wbc/hpf (0-5)
[2017-06-02 20:36] VITALS: BP 106/69
[2017-06-03 06:00] LABS: ALKALINE PHOSPHATASE 95 U/L (45-117); BUN 23 mg/dl (7-24); CHLORIDE 107 mmol/L (98-107); CHOLESTEROL 113 mg/dL (<200); CREATININE 0.96 mg/dL (0.70-1.30); HDL CHOLESTEROL 48 mg/dl (40-60); LDL CHOLESTEROL 42 mg/dL (9-159); POTASSIUM 3.9 mmol/L (3.5-5.1); SGOT/AST 8 IU/L (3-35); SGPT/ALT 16 U/L (12-78); SODIUM 142 mmol/L (136-145); TRIGLYCERIDES 116 mg/dl (<150); VLDL CHOLESTEROL 23 mg/dL (6-40)
[2017-06-03 06:51] LABS: VITAMIN D, 25-HYDROXY 32.6 ng/mL (30-100)
[2017-06-03 08:14] VITALS: BP 119/74
[2017-06-03 20:09] VITALS: BP 100/68
[2017-06-04 08:19] VITALS: BP 122/64
[2017-06-04 20:00] VITALS: BP 106/72
[2017-06-05 07:59] VITALS: BP 121/68
[2017-06-05 20:11] VITALS: BP 120/64
[2017-06-06 07:58] VITALS: BP 122/76
[2017-06-06 20:00] VITALS: BP 111/68
[2017-06-07 07:50] VITALS: BP 121/74
[2017-06-07 20:00] VITALS: BP 124/70
[2017-06-08 08:24] VITALS: BP 122/64
[2017-06-08 20:00] VITALS: BP 124/68
[2017-06-09 08:17] VITALS: BP 122/62
[2017-06-09 20:27] VITALS: BP 126/70
[2017-06-10 08:23] VITALS: BP 120/67
[2017-06-10 20:00] VITALS: BP 118/64
[2017-06-11 08:09] VITALS: BP 128/72
[2017-06-11 20:00] VITALS: BP 106/68
[2017-06-12 05:44] LABS: BUN 21 mg/dl (7-24); CHLORIDE 110 mmol/L (98-107); CREATININE 0.86 mg/dL (0.70-1.30); POTASSIUM 3.7 mmol/L (3.5-5.1); SODIUM 147 mmol/L (136-145)
[2017-06-12 07:58] VITALS: BP 122/68
[2017-06-12] MEDS ORDERED: DEPLIN-ALGAL O1 EACH PO (08:23)
[2017-06-12] MEDS ORDERED: QUETIAPINE FUMA50 M1 PO (08:23)
[2017-06-12] MEDS ORDERED: MEMANTINE HCL10 MG PO (08:23)
[2017-06-12] MEDS ORDERED: DIVALPROEX SOD125 M1 PO (08:23)
[2017-06-12] MEDS ORDERED: Vitamin D PO (08:23)
[2017-06-12] MEDS ORDERED: RIVASTIGMINE TAR3 M1 PO (08:23)
== END 2017-06-12 19:09 | DRG 57 ==
LOC: 3N 22:28
PROVIDERS: Family Medicine; Psychiatry & Neurology Psychiatry
DX: G30.0 Alzheimer's disease with early onset (principal); F02.81 Dementia in other diseases classified elsewhere, unspecified severity, with behavioral disturbance; I50.9 Heart failure, unspecified; F23 Brief psychotic disorder; F63.9 Impulse disorder, unspecified; E55.9 Vitamin D deficiency, unspecified; G89.29 Other chronic pain; E78.1 Pure hyperglyceridemia; F32.9 Major depressive disorder, single episode, unspecified; G47.00 Insomnia, unspecified; E78.2 Mixed hyperlipidemia; F80.2 Mixed receptive-expressive language disorder; Z79.899 Other long term (current) drug therapy